=== PATIENT | male | born 1950 | race Two or more races ===

== ENCOUNTER 2016-06-14 09:55 | Outpatient (CLI) | payer MEDICARE, MEDICAID ==
[~2016-06-14 09:55] MED LIST: ATEZOLIZUMAB 1,200 MG in NORMAL SALINE 250 ML IV PRN; NORMAL SALINE 250 ML IV PRN
[2016-06-14 10:33] VITALS: BP 109/60
[2016-06-14] MEDS ORDERED: DIPHENHYDRAMINE HCL 50 MG/ML VIAL IV ONE (11:00)
[2016-06-14] MEDS ORDERED: ONDANSETRON HCL INJ/PF 4 MG/2 ML SDV IV ONE (11:00)
== END 2016-06-14 12:27 | disposition home or self-care (01) ==
LOC: II 09:55 → 5TH 10:00 → II 12:27
PROVIDERS: ATTEND Specialist
DX: Z51.11 Encounter for antineoplastic chemotherapy (principal); C67.9 Malignant neoplasm of bladder, unspecified
CPT/HCPCS: 96413; 96375; J2405; J7050; C9483; 96360; 96374

== ENCOUNTER 2016-07-05 11:04 | Outpatient (CLI) | payer MEDICARE, MEDICAID ==
[2016-07-05] MEDS ORDERED: NORMAL SALINE 250 ML IV PRN (11:24)
[2016-07-05] MEDS ORDERED: ONDANSETRON HCL INJ/PF 4 MG/2 ML SDV IV PRN (11:25)
[2016-07-05] MEDS ORDERED: ATEZOLIZUMAB 1,200 MG in NORMAL SALINE 250 ML IV PRN (11:28)
[2016-07-05] MEDS ORDERED: OXYCODONE HCL IR 5 MG TABLET PO ONE (12:40)
[2016-07-05 12:52] VITALS: BP 115/75
== END 2016-07-05 15:28 | disposition home or self-care (01) ==
LOC: II 11:04
PROVIDERS: ATTEND Specialist
PROC: 3E03305 Introduction of Other Antineoplastic into Peripheral Vein, Percutaneous Approach (ICD-10-PCS; principal; 2016-07-05)
PROC: 3E033GC Introduction of Other Therapeutic Substance into Peripheral Vein, Percutaneous Approach (ICD-10-PCS; 2016-07-05)
PROC: 3E033GC Introduction of Other Therapeutic Substance into Peripheral Vein, Percutaneous Approach (ICD-10-PCS; 2016-07-05)
DX: Z51.11 Encounter for antineoplastic chemotherapy (principal); D67 Hereditary factor IX deficiency
CPT/HCPCS: 96413; 96366; 96375; J2405; J7050; A9270; C9483; 96360; 96361; 96374

== ENCOUNTER → 2016-07-12 | Outpatient (CLI) | payer MEDICARE, MEDICAID | LOC: RAD 09:51 | PROVIDERS: ATTEND Specialist | DX: C67.9 Malignant neoplasm of bladder, unspecified (principal); M48.06 Spinal stenosis, lumbar region | CPT/HCPCS: 72158; A9577 ==

== ENCOUNTER 2016-07-26 10:24 | Observation (INO) | payer MEDICARE, MEDICAID ==
[2016-07-26] MEDS ORDERED: MORPHINE SULFATE 10 MG/ML INJ ONE ×3 (11:39→14:02)
[2016-07-26] MEDS ORDERED: ONDANSETRON HCL INJ/PF 4 MG/2 ML SDV IV ONE (11:50)
[2016-07-26] MEDS ORDERED: NORMAL SALINE 1000 ML 1,000 ML IV PRN (11:50)
[2016-07-26] MEDS ORDERED: METOCLOPRAMIDE HCL INJ/PF 10 MG/2 ML SDV IV ONE (11:57)
[2016-07-26] MEDS ORDERED: DIPHENHYDRAMINE HCL 50 MG/ML VIAL IV ONE (11:57)
[2016-07-26] MEDS ORDERED: ONDANSETRON HCL INJ/PF 4 MG/2 ML SDV ONE (12:02)
[2016-07-26] MEDS ORDERED: LIDOCAINE 2% JELLY 5 ML TUBE ONE (12:02)
[2016-07-26 12:25] LABS: HEMATOCRIT 30.5 % (37.9-51.0); HEMOGLOBIN 9.5 g/dL (13.5-17.0); MEAN CORPUSCULAR HEMOGLOBIN 28.8 pg (27.0-33.4); MEAN CORPUSCULAR HGB CONC 31.1 g/dL (32.0-36.0); MEAN CORPUSCULAR VOLUME 92 fl (80-97); RED CELL DISTRIBUTION WIDTH 15.6 % (11.5-14.0); WHITE BLOOD COUNT 21.6 10^3/uL (4.0-10.5)
[2016-07-26 12:29] LABS: PROTHROMBIN TIME 15.3 SEC (11.4-15.4)
[2016-07-26 12:42] LABS: ANISOCYTOSIS 1+; BASOPHILS % (MANUAL) 0 % (0-2); EOSINOPHILS % (MANUAL) 0 % (0-6); LYMPHOCYTES % (MANUAL) 8 % (13-45); TOTAL CELLS COUNTED 100; TOXIC GRANULATION SLIGHT
[2016-07-26 12:43] LABS: POLYCHROMASIA SLIGHT
[2016-07-26 12:44] LABS: ALANINE AMINOTRANSFERASE 32 U/L (21-72); ALBUMIN 3.5 g/dL (3.5-5.0); ALKALINE PHOSPHATASE 739 U/L (38-126); ANION GAP 19 (5-19); ASPARTATE AMINO TRANSFERASE 25 U/L (17-59); BILIRUBIN,TOTAL 0.9 mg/dL (0.2-1.3); BLOOD UREA NITROGEN 32 mg/dL (7-20); CARBON DIOXIDE 18 mmol/L (22-30); CHLORIDE 104 mmol/L (98-107); GLUCOSE 105 mg/dL (75-110); POTASSIUM 5.9 mmol/L (3.6-5.0); SODIUM 141.2 mmol/L (137-145); TOTAL PROTEIN 7.2 g/dL (6.3-8.2)
--- NOTE | 2016-07-26 14:46 | ER Document Report ---
ED General - General Chief Complaint: Constipation Stated Complaint: ABDOMINAL PAIN Time seen by provider: 12:00 Mode of Arrival: Medic Information source: Patient, Relative Notes: This is a 65-year-old man with metastatic bladder cancer who presents to the emergency room with significant generalized weakness, decreased by mouth intake , lower abdominal pain associated with severe constipation (last bowel movement 5 weeks ago). Patient does state that he is intermittently incontinent of stool. Patient does have a history of having a bladder resection with small bowel reconstruction. Patient denies any fever, chills, nausea vomiting. TRAVEL OUTSIDE OF THE [place] IN LAST 30 DAYS: No - HPI Onset: Last week Onset/Duration: Gradual Quality of pain: Dull Severity: Moderate Pain Level: 3 Associated symptoms: Nausea, Vomiting. denies: Chills, Fever Exacerbated by: Movement Relieved by: Remaining still Similar symptoms previously: Yes Recently seen / treated by doctor: Yes - Related Data Allergies/Adverse Reactions: Penicillins Allergy (Verified 04/22/15 12:50) rash Home Medications: Current Home Medications Lactulose [Constulose] 30 ml PO BID 07/26/16 [History] Megestrol Acetate [Megace] 20 ml PO BID 07/26/16 [History] Morphine Sulfate [Morphine Sulfate ER] 30 mg PO BID 07/26/16 [History] Past Medical History - General Information source: Patient, [facility] Records - Social History Smoking Status: Current Every Day Smoker Cigarette use (# per day): Yes - 3-4 cigarettes a day Chew tobacco use (# tins/day): No Smoking Education Provided: No Frequency of alcohol use: None Drug Abuse: Marijuana Lives with: Family Family History: Reviewed & Not Pertinent Patient has suicidal ideation: No Patient has homicidal ideation: No - Past Medical History Cardiac Medical History: Reports: Hx Heart Attack, Hx Hypertension Denies: Hx Coronary Artery Disease Pulmonary Medical History: Denies: Hx Asthma, Hx Bronchitis, Hx COPD, Hx Pneumonia Neurological Medical History: Denies: Hx Cerebrovascular Accident, Hx Seizures Renal/ Medical History: Denies: Hx Peritoneal Dialysis Malignancy Medical History: Reports Hx Renal (Kidney) Cancer Musculoskeltal Medical History: Reports Hx Arthritis - HANDS Past Surgical History: Reports: Hx Kidney (Renal Surgery) - 75% resection of the left kidney., Hx Urinary Tract Surgery - Laser procedure on a bladder cancer - Immunizations Immunizations up to date: Yes Hx Diphtheria, Pertussis, Tetanus Vaccination: Yes Hx Pneumococcal Vaccination: 03/04/11 Review of Systems - Review of Systems Constitutional: denies: Chills, Fever EENT: No symptoms reported Cardiovascular: No symptoms reported Respiratory: No symptoms reported Gastrointestinal: See HPI Genitourinary: See HPI Male Genitourinary: No symptoms reported Musculoskeletal: No symptoms reported Skin: No symptoms reported Hematologic/Lymphatic: No symptoms reported Neurological/Psychological: No symptoms reported Physical Exam - Vital signs Vitals: Temp 97.8 F 07/26/16 10:25 Notes: Physical exam: GENERAL: 65-year-old man, alert and oriented 3, cachectic, appears very weak and ill. HEAD: Atraumatic, normocephalic. EYES: Pupils equal round and reactive to light, extraocular movements intact, sclera anicteric, conjunctiva are normal. ENT: TMs normal, nares patent, oropharynx clear without exudates. Moist mucous membranes. NECK: Normal range of motion, supple without lymphadenopathy or JVD. LUNGS: Breath sounds clear to auscultation bilaterally and equal. No wheezes rales or rhonchi. HEART: Regular rate and rhythm without murmurs, rubs or gallops. ABDOMEN: Soft, normoactive bowel sounds. Suprapubic tenderness. No guarding, no rebound. No masses appreciated. Back: No thoracic or lumbar tenderness. RECTAL: Patient does have marked constipation with a very large amount of stool in the sigmoid. He was disimpacted a very large amount of stool. No obvious masses were palpable. His perirectal area his understandably tender. There is no obvious fluctuant masses at this time. He does have rectal tone. EXTREMITIES: He is moving his lower extremities. Normal range of motion, no pitting or edema. No clubbing or cyanosis. NEUROLOGICAL: Sensory to the abdomen and lower extremities is good (there are no sensory levels). Cranial nerves II through XII grossly intact. PSYCH: Normal mood, normal affect. SKIN: Warm, Dry, normal turgor, no rashes or lesions noted. Course - Re-evaluation Re-evalutation: 07/26/16 19:50 Note: Patient did tolerate the disimpaction well. It took quite a bit of time as there was a large amount of stool. There is still a fair amount of stool left, but it is soft. I did and the procedure after 30 minutes at the patient request. The stool that his left is quite soft. Patient does have rectal tone. He does have sensation to the saddle area. I do not detect any acute cord syndrome at this time. I did review the MRI with Dr. Lopez and it shows diffuse soft tissue metastases but no spinal metastases. I discussed the case with Dr. Campuzano as well and she will see the patient in consult. Dust the leukocytosis which is sometimes an effect of the immune modulator. He has had elevated white counts in the past. I do not see any evidence of sepsis at this time. The patient's primary care physician is Dr. Valencia and I discussed the case with Dr. Valencia in his willing to admit the patient for further IV fluids. The patient has had retching and vomiting and I treated him with IV Zofran, IV Reglan and Benadryl along with IV fluids. - Vital Signs Vital signs: Temp Pulse Resp BP Pulse Ox 98.4 F 78 16 106/66 99 07/26/16 18:39 07/26/16 18:39 07/26/16 18:39 07/26/16 18:39 07/26/16 18:39 - Laboratory Result Diagrams: 07/26/16 10:38 07/26/16 10:38 Laboratory results interpreted by me: 07/26/16 07/26/16 10:38 10:38 WBC 21.6 H RBC 3.30 L Hgb 9.5 L Hct 30.5 L MCHC 31.1 L RDW 15.6 H Plt Count 667 H Seg Neuts % (Manual) 87 H Lymphocytes % (Manual) 8 L Abs Neuts (Manual) 18.8 H Potassium 5.9 H Carbon Dioxide 18 L BUN 32 H Creatinine 1.70 H Est GFR ( Amer) 49 L Est GFR (Non-Af Amer) 41 L Alkaline Phosphatase 739 H - Diagnostic Test Radiology reviewed: Image reviewed, Reports reviewed - KUB after disimpaction shows still a significant amount of stool in the colon. Procedures - Additional Procedures fecal disimpaction Time performed: 14:00 Additional Procedures: Other - A large amount of stool was liberated from the sigmoid. The procedure took approximately 30 minutes. I did apply lidocaine jelly to the rectum after the procedure. No obvious masses were palpable. Critical Care Note - Critical Care Note Total time excluding time spent on procedures (mins): 60 Discharge - Discharge Clinical Impression: vomiting with nausea, orthostasis, metastatic cancer, constipation, hyperkalemia Condition: Stable Disposition: ADMITTED OBSERVATION Admitting Provider: Erik Unit Admitted: Medical Floor
[2016-07-26] MEDS ORDERED: ONDANSETRON HCL INJ/PF 4 MG/2 ML SDV IV PRN (16:44)
[2016-07-26] MEDS ORDERED: PROMETHAZINE HCL 25 MG TABLET PO PRN (16:52)
[2016-07-26 17:26] LABS: APPEARANCE,URINE SLIGHTLY-CLOUDY; BILIRUBIN,URINE NEGATIVE (NEGATIVE); GLUCOSE, URINE NEGATIVE (NEGATIVE); KETONES,URINE NEGATIVE (NEGATIVE); LEUKOCYTE ESTERASE,URINE MODERATE (NEGATIVE); NITRITE,URINE NEGATIVE (NEGATIVE); PROTEIN,URINE 30 mg/dL (NEGATIVE)
--- NOTE | 2016-07-26 17:43 | PDOC H&P ---
History of Present Illness Admission Date/PCP: 07/26/16 16:10 CLARISSA MARIA MD Patient complains of: constipation History of Present Illness: ÁLVARO SANDS is a 65 year old male with cancer bladder dome metastatic to lung liver and paraspinal tissue. 7feb mri L hydronephrosis. OIC on morphine 15bid. ER disempacted. Vomiting, dehydration. Past Medical History Cardiac Medical History: Reports: Myocardial Infarction, Hypertension Pulmonary Medical History: Reports: Chronic Obstructive Pulmonary Disease (COPD) Neurological Medical History: Reports: None Malignancy Medical History: Reports: Other - 2016 bladder turb & chemo GI Medical History: Reports: Gastroesophageal Reflux Disease Musculoskeltal Medical History: Reports: Arthritis - HANDS lbp Psychiatric Medical History: Reports: None Traumatic Medical History: Reports: None Hematology: Reports: Anemia - chronic disease Infectious Medical History: Reports: None Past Surgical History Past Surgical History: Reports: Other - turb. November jennifer bladder Social History Information Source: Dr. Jeffers Lives with: Family Smoking Status: Former Smoker Last Time Smoked: 2015 Frequency of Alcohol Use: None Hx Recreational Drug Use: Yes Drugs: Marijuana Hx Prescription Drug Abuse: No Family History Family History: Reviewed & Not Pertinent, CAD, CVA, DM, Hypertension, Malignancy Parental Family History Reviewed: Yes Children Family History Reviewed: Yes Sibling(s) Family History Reviewed.: Yes Medication/Allergy Home Medications: Ondansetron HCl [Zofran 8 mg Tablet] 8 mg PO TID 10/12/15 Promethazine HCl [Phenergan 25 mg Tablet] 25 mg PO Q4HP PRN 10/12/15 Lactulose [Constulose] 30 ml PO BID 07/26/16 Megestrol Acetate [Megace] 20 ml PO BID 07/26/16 Morphine Sulfate [Morphine Sulfate ER] 30 mg PO BID 07/26/16 Allergies/Adverse Reactions: Penicillins Allergy (Verified 04/22/15 12:50) rash Review of Systems Constitutional: PRESENT: fever(s), weakness, weight loss - 30# in 2w Cardiovascular: PRESENT: dyspnea on exertion. ABSENT: chest pain, orthropnea Respiratory: ABSENT: cough Gastrointestinal: PRESENT: bloating, constipation, vomiting. ABSENT: abdominal pain, diarrhea, heartburn, hematemesis, hematochezia, melena Genitourinary: PRESENT: difficulty urinating. ABSENT: dysuria, hematuria Musculoskeletal: PRESENT: back pain - radiating to ankles Integumentary: PRESENT: lesions - lump R sacrum Physical Exam Vital Signs: Temp Pulse Resp BP Pulse Ox 97.8 F 16 112/74 96 07/26/16 10:25 07/26/16 13:10 07/26/16 12:30 07/26/16 13:10 General appearance: PRESENT: no acute distress Mouth exam: PRESENT: dry mucosa Neck exam: ABSENT: lymphadenopathy, tenderness, thyromegaly, tracheal deviation Respiratory exam: PRESENT: other - R rub Cardiovascular exam: ABSENT: diastolic murmur, irregular rhythm, systolic murmur GI/Abdominal exam: ABSENT: mass, organolmegaly, tenderness Extremities exam: ABSENT: pedal edema Neurological exam: PRESENT: oriented to situation, other - plantar & dorsiflexion 5of5 Psychiatric exam: PRESENT: appropriate affect Skin exam: PRESENT: other - lump R sacrum Results Laboratory Results: Abnormal - 24 hr 07/26/16 07/26/16 07/26/16 10:38 10:38 16:51 WBC 21.6 H RBC 3.30 L Hgb 9.5 L Hct 30.5 L MCHC 31.1 L RDW 15.6 H Plt Count 667 H Seg Neuts % (Manual) 87 H Lymphocytes % (Manual) 8 L Abs Neuts (Manual) 18.8 H Potassium 5.9 H Carbon Dioxide 18 L BUN 32 H Creatinine 1.70 H Est GFR ( Amer) 49 L Est GFR (Non-Af Amer) 41 L Alkaline Phosphatase 739 H Urine Protein 30 H Urine Blood SMALL H Urine Urobilinogen 4.0 H Ur Leukocyte Esterase MODERATE H Impressions: KUB X-Ray 07/26/16 12:33 IMPRESSION: Moderate to large amount of stool in the left colon Surgical clips in the pelvis post creation of a neobladder Soft tissue masses from metastatic disease in the paraspinal region seen on MRI lumbar spine 07/12/2016 are not apparent by plain film Assessment & Plan - Diagnosis (1) Bladder cancer metastasized to lung Is this a current diagnosis for this admission?: YesPlan: consult Dr Campuzano (2) Impaction of colon Is this a current diagnosis for this admission?: YesPlan: amitiza enemas
[2016-07-26] MEDS ORDERED: LACTULOSE PO SCH (18:00)
[2016-07-26] MEDS ORDERED: ENOXAPARIN SODIUM INJ 30 MG/0.3 ML DISP.SYRIN SUBCUT ONE (18:00)
[2016-07-26] MEDS: NORMAL SALINE 1000 ML 1,000 ML IV PRN (20:00)
[2016-07-26] MEDS: MORPHINE SULFATE SR 15 MG TABLET PO SCH (20:01)
[2016-07-26] MEDS: ONDANSETRON HCL 8 MG TABLET PO SCH (20:02)
[2016-07-26] MEDS: LACTULOSE SYRUP 20 GM/30 ML UDCUP PO SCH (20:02)
[2016-07-26] MEDS: LUBIPROSTONE 24 MCG CAPSULE PO SCH (20:02)
[2016-07-26] MEDS: OXYCODONE-ACETAMINOPHEN 5-325 MG TABLET PO PRN (23:37)
[2016-07-27] MEDS: NORMAL SALINE 1000 ML 1,000 ML IV PRN ×3 (02:40→19:43)
[2016-07-27 06:11] LABS: ANION GAP 11 (5-19); BLOOD UREA NITROGEN 30 mg/dL (7-20); CALCIUM 8.8 mg/dL (8.4-10.2); CARBON DIOXIDE 19 mmol/L (22-30); CHLORIDE 110 mmol/L (98-107); CREATININE RESULT 1.49 mg/dL (0.52-1.25); GLUCOSE 85 mg/dL (75-110); POTASSIUM 5.4 mmol/L (3.6-5.0); SODIUM 139.5 mmol/L (137-145)
--- NOTE | 2016-07-27 07:43 | PDOC PROGRESS REPORT ---
Subjective Progress Note for:: 07/27/16 Subjective:: better p enemas returned good results Physical Exam Vital Signs: Temp Pulse Resp BP Pulse Ox 98.3 F 81 19 100/59 L 98 07/26/16 23:32 07/26/16 23:32 07/26/16 23:32 07/26/16 23:32 07/26/16 23:32 Intake & Output 07/25/16 07/26/16 07/27/16 07:59 07:59 07:59 Intake Total 1850 Balance 1850 Weight 123 lb 10.869 oz General appearance: PRESENT: no acute distress Respiratory exam: PRESENT: clear to auscultation chase GI/Abdominal exam: PRESENT: tenderness - mild epigastric. ABSENT: guarding, mass, organolmegaly Extremities exam: ABSENT: pedal edema Results Laboratory Results: 07/27/16 04:45 07/26/16 07/27/16 16:51 04:45 Sodium 139.5 Potassium 5.4 H Chloride 110 H Carbon Dioxide 19 L Anion Gap 11 BUN 30 H Creatinine 1.49 H Est GFR ( Amer) 57 L Est GFR (Non-Af Amer) 47 L Glucose 85 Calcium 8.8 Urine Color YELLOW Urine Appearance SLIGHTLY-CLOUDY Urine pH 6.0 Ur Specific [place] 1.010 Urine Protein 30 H Urine Glucose (UA) NEGATIVE Urine Ketones NEGATIVE Urine Blood SMALL H Urine Nitrite NEGATIVE Ur Leukocyte Esterase MODERATE H Urine WBC (Auto) 12 Urine RBC (Auto) 1 Impressions: KUB X-Ray 07/26/16 12:33 IMPRESSION: Moderate to large amount of stool in the left colon Surgical clips in the pelvis post creation of a neobladder Soft tissue masses from metastatic disease in the paraspinal region seen on MRI lumbar spine 07/12/2016 are not apparent by plain film Assessment & Plan - Diagnosis (1) Bladder cancer metastasized to lung Is this a current diagnosis for this admission?: YesPlan: consulted Dr Campuzano (2) Impaction of colon Is this a current diagnosis for this admission?: YesPlan: conitnue enemas & amitiza (3) Pyuria Is this a current diagnosis for this admission?: YesPlan: 12wbc. Culture (4) Hydronephrosis due to ureteral stricture Is this a current diagnosis for this admission?: YesPlan: L on mri
[2016-07-27] MEDS ORDERED: ENOXAPARIN SODIUM INJ 30 MG/0.3 ML DISP.SYRIN SUBCUT SCH (08:00)
[2016-07-27] MEDS: ENOXAPARIN SODIUM INJ 30 MG/0.3 ML DISP.SYRIN SUBCUT SCH (08:17)
[2016-07-27] MEDS: ONDANSETRON HCL 8 MG TABLET PO SCH ×3 (11:05→18:30)
[2016-07-27] MEDS: MORPHINE SULFATE SR 15 MG TABLET PO SCH ×2 (11:06→18:29)
[2016-07-27] MEDS: LACTULOSE SYRUP 20 GM/30 ML UDCUP PO SCH ×2 (11:07→18:29)
[2016-07-27] MEDS: LUBIPROSTONE 24 MCG CAPSULE PO SCH ×2 (11:08→18:29)
[2016-07-27] MEDS: OXYCODONE-ACETAMINOPHEN 5-325 MG TABLET PO PRN (14:03)
--- NOTE | 2016-07-27 17:32 | PDOC CONSULTATION ---
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 Initially diagnosed with locally advanced, muscle invasive bladder cancer treated with neoadjuvant GC x 6 then bladder resection at [facility] with Dr. Mejia with neobladder reconstruction. Recently with Progression of disease and just started immunotherapy with Tecentriq. Due to back pain, he had an MRI which revealed several paraspinal mets but no cord compression and was placed on long acting analgesics. He was also noted to have signs of MAURICIO and left hydronephrosis. Unfortunately, he had worsening constipation and presented to the ED with a large amount of stool on KUB. ER disempacted him due to and due to Vomiting, and dehydration he was admitted. He is feeling better today and denies symptoms of MAURICIO. Past Medical History Cardiac Medical History: Reports: Myocardial Infarction, Hypertension Denies: Coronary Artery Disease Pulmonary Medical History: Denies: Asthma, Bronchitis, Chronic Obstructive Pulmonary Disease (COPD), Pneumonia Neurological Medical History: Reports: None Denies: Seizures Renal/ Medical History: Reports: Chronic Kidney Disease Malignancy Medical History: Reports: Renal (Kidney) Cancer, Other - 2016 bladder turb & chemo GI Medical History: Reports: Gastroesophageal Reflux Disease Musculoskeltal Medical History: Reports: Arthritis - HANDS Psychiatric Medical History: Reports: None Traumatic Medical History: Reports: None Hematology: Reports: Anemia - chronic disease, Other - Prior UE DVT Infectious Medical History: Reports: None Past Surgical History Past Surgical History: Reports: Other - . jennifer bladder prior partial nephrectomy Social History Lives with: Family Smoking Status: Current Every Day Smoker Cigarettes Packs Per Day: 1 Number of Years Smokin Last Time Smoked: 07/23/16 Frequency of Alcohol Use: Occasional Hx Recreational Drug Use: Yes Drugs: Marijuana Hx Prescription Drug Abuse: No - Advance Directive Resuscitation Status: Do Not Resuscitate Family History Family History: Reviewed & Not Pertinent Parental Family History Reviewed: Yes Children Family History Reviewed: Yes Sibling(s) Family History Reviewed.: Yes Medication/Allergy Home Medications: Ondansetron HCl [Zofran 8 mg Tablet] 8 mg PO TID 10/12/15 Promethazine HCl [Phenergan 25 mg Tablet] 25 mg PO Q4HP PRN 10/12/15 Lactulose [Constulose] 30 ml PO BID 07/26/16 Megestrol Acetate [Megace] 20 ml PO BID 07/26/16 Morphine Sulfate [Morphine Sulfate ER] 30 mg PO BID 07/26/16 Allergies/Adverse Reactions: Penicillins Allergy (Verified 04/22/15 12:50) rash Review of Systems Constitutional: PRESENT: weight loss Gastrointestinal: PRESENT: abdominal pain, nausea, vomiting Genitourinary: PRESENT: as per HPI Hematologic/Lymphatic: PRESENT: as per HPI Physical Exam Vital Signs: Temp Pulse Resp BP Pulse Ox 98.0 F 78 16 109/61 98 07/27/16 12:30 07/27/16 12:30 07/27/16 12:30 07/27/16 12:30 07/27/16 12:30 Intake & Output 07/26/16 07/27/16 07/28/16 06:59 06:59 06:59 Intake Total 1850 2558 Balance 1850 2558 Weight 56.1 kg General appearance: PRESENT: no acute distress, other - Pale Head exam: PRESENT: atraumatic, normocephalic Eye exam: PRESENT: conjunctiva pale Ear exam: PRESENT: normal external ear exam Mouth exam: PRESENT: dry mucosa Respiratory exam: PRESENT: clear to auscultation chase Cardiovascular exam: PRESENT: tachycardia GI/Abdominal exam: PRESENT: hypoactive bowel sounds, soft Neurological exam: PRESENT: alert, oriented to person, oriented to place, oriented to time, oriented to situation, CN II-XII grossly intact Results Laboratory Results: 07/27/16 04:45 07/26/16 07/27/16 16:51 04:45 Sodium 139.5 Potassium 5.4 H Chloride 110 H Carbon Dioxide 19 L Anion Gap 11 BUN 30 H Creatinine 1.49 H Est GFR ( Amer) 57 L Est GFR (Non-Af Amer) 47 L Glucose 85 Calcium 8.8 Urine Color YELLOW Urine Appearance SLIGHTLY-CLOUDY Urine pH 6.0 Ur Specific [place] 1.010 Urine Protein 30 H Urine Glucose (UA) NEGATIVE Urine Ketones NEGATIVE Urine Blood SMALL H Urine Nitrite NEGATIVE Ur Leukocyte Esterase MODERATE H Urine WBC (Auto) 12 Urine RBC (Auto) 1 Impressions: KUB X-Ray 07/26/16 12:33 IMPRESSION: Moderate to large amount of stool in the left colon Surgical clips in the pelvis post creation of a neobladder Soft tissue masses from metastatic disease in the paraspinal region seen on MRI lumbar spine 07/12/2016 are not apparent by plain film Assessment & Plan - Diagnosis (1) Bladder cancer metastasized to lung Is this a current diagnosis for this admission?: YesPlan: Hold his current therapy until symptoms have resolved. Consult pain specialist for control (2) Hydronephrosis due to ureteral stricture Is this a current diagnosis for this admission?: YesPlan: Will start flomax and refer back up to Dr. Mejia (3) Impaction of colon Is this a current diagnosis for this admission?: YesPlan: Better today but continue bowel regimen (4) Pyuria Is this a current diagnosis for this admission?: YesPlan: Send urine for culture - Time Time Spent: 50 to 70 Minutes Critical Time spent with patient: 35 or more minutes Medications reviewed and adjusted accordingly: Yes Within: within 36 hours - Inpatient Certification Medical Necessity: Need For IV Fluids
[2016-07-27] MEDS ORDERED: ONDANSETRON HCL INJ/PF 4 MG/2 ML SDV ONE (18:22)
[2016-07-27] MEDS ORDERED: PROMETHAZINE HCL 25 MG TABLET PO PRN (19:05)
[2016-07-27] MEDS ORDERED: OXYCODONE-ACETAMINOPHEN 5-325 MG TABLET PO PRN (19:07)
--- NOTE | 2016-07-27 21:08 | CONSULTATION REPORT E ---
Consultation Report NAME: ÁLVARO SANDS : 1950 AGE: 65Y DATE: 07/27/2016 405 A TO: TONO STEWART M.D. FROM: CLARISSA MARIA M.D. Requesting Physician REFERRING PHYSICIAN: LUCY CHAPMAN M.D. CHIEF COMPLAINT: Constipation. 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 The patient has had progression of disease and has recently started immunotherapy per Dr. Chapman. Per the patient, he was recently admitted because he had worsening constipation and bowel obstruction. He presented to the emergency department on 07/26/2016 and required manual disimpaction and multiple enemas. Today the patient notes that his pain is much improved. He was relating his pain to worsening constipation that felt like it was causing substantial abdominal distension. He states today that he is doing better though he has had some nausea and vomiting that has continued. When asked is what is most painful for the patient, he states, "not knowing how much time I have left with my family." He does not complain much in the way of physical pain today. He notes that he has been taking MS-Contin for the past month which has been helpful with back pain. However, he notes that since starting the MS-Contin, he has had worsening issues with constipation. He notes that he has previously taken oxycodone, which has been helpful though he notes that if he takes more than 5 mg of oxycodone at a time, it causes a substantial mental disturbance to hallucination. He also notes this makes him very nauseated. He is unable to tolerate higher doses of oxycodone. He denies really any other trials of pain medications though. He does describe at length that he has had a history of illicit substances use though he has been away from this for greater than 20 years now. He states to me that, "I was a junkie." At current what is most bothersome to him is dealing with his current diagnosis of cancer. PAST MEDICAL HISTORY: As per HPI, chronic kidney disease, kidney cancer status post nephrectomy, bladder dome status post neobladder and chemo, gastroesophageal reflux disease, arthritis, low back pain, anemia of chronic disease, history of prior upper extremity DVT. PAST SURGICAL HISTORY: As above, neobladder and partial prior nephrectomy November 2015. SOCIAL HISTORY: He lives with his , states that he has 56 grandchildren. He endorses that he has previously used illicit substances. He is a current every-day smoker and smokes 1 pack per day. He uses alcohol occasionally. Notably, he is a DNR. FAMILY HISTORY: Noncontributory. HOME MEDICATIONS: 1. Zofran 8 mg p.o. t.i.d. 2. Phenergan 25 mg p.o. q.4 h. p.r.n. 3. Lactulose 30 mg p.o. b.i.d. 4. Megace 20 mg p.o. b.i.d. 5. Morphine sulfate extended release 30 mg p.o. b.i.d. ALLERGIES: PENICILLIN. REVIEW OF SYSTEMS: Patient endorses some nausea and vomiting and actually vomits while in the room, weight loss and constipation. PHYSICAL EXAMINATION: VITAL SIGNS: Temperature 98, heart rate 78, blood pressure 109/61, respiratory rate 16, oxygen saturation 98% on room air. Pain score 0/5. GENERAL: The patient is a very thin male sitting in bed in no acute distress. He is emphatic in his speaking. He is alert and oriented x3. HEENT: Head is normocephalic, atraumatic. Poor dentition noted. NECK: Thin. RESPIRATORY: Even unlabored work of breathing. CARDIOVASCULAR: Regular rate and rhythm. ABDOMEN: Soft today, nontender. MUSCULOSKELETAL: Moves all extremities. NEUROLOGIC: No focal deficits noted. PERTINENT LABORATORY TESTS: Laboratory: White blood count is elevated at 21.6, hemoglobin and hematocrit are 9.5 and 30.5, both low. Platelet count 667. Potassium is 5.4 and elevated, BUN 30, creatinine 1.49 and elevated. Previous lumbar spine MRI dated 07/12/2016 demonstrated numerous paraspinal mets too numerous to count. There is also degenerative disk disease at L2-L3 from a broad diffuse disk bulge, facet hypertrophy as well, L3-4 with mild central stenosis, L4-5 with high-grade central stenosis due to broad based disk bulge and L5-S1 with broad posterior disk bulge. ASSESSMENT: 1. Opioid induced constipation. 2. Chronic pain due to cancer. PLAN: 1. The patient is a 65-year-old male currently suffering with opioid induced constipation exacerbating cancer related pain. Notably the patient is actually fairly well controlled from a pain management standpoint though constipation has been an ongoing issue. He is currently on a rigorous bowel regimen in-house for disimpaction. With regard to this, I agree with current plan. I have discussed with the patient at length that as an outpatient, he should consider being on a rigorous bowel regimen as an every-day consideration. I would recommend consideration for medication such as Movantik or Relistor given the substantial opiate induced aspect of his constipation once confirmation can be made there is no bowel obstruction. This will need to be taken every day to allow for continued regular bowel movements. Otherwise, hydration and proper diet was discussed. 2. With regard to nausea and vomiting, there is currently no in-house IV Phenergan. I have provided an order for p.o. Phenergan that may be crushed and taken. Otherwise, Zofran may be continued, alternating with Phenergan for nausea. 3. With regard to pain, while morphine has been working, given the side effects that are associated with it, I have recommended a potential change in long-acting medication. I would recommend a trial of fentanyl patch. While this is opioid and certainly can cause constipation, sometimes I find that there is some improvement in this aspect given that there is some bypass of the gut with administration of this medication. I have recommended a start dose of 25 mcg/hr every 72 hours given patient's current morphine dosing. Additionally will continue oxycodone at 5/325 mg, as this has been tolerable for the patient and does help with pain. 4. With regard to back pain, if this is something that should recur in a substantive fashion, procedural techniques could be considered for degenerative disk disease if pain returns and fits this sort of pattern. 5. With regard to the pain due to paraspinal soft tissue metastases, I do not believe there is interventional technique that would provide a great relief with regard to this. 6. I discussed with the patient that we will give the fentanyl patch a try and if he is not happy with pain relief or has worsening side effects of nausea or constipation, then we will switch back to morphine and continue with that, given its efficacy with his pain. I will continue to follow along with this patient. Thank you very much for this interesting consultation. DICTATING PHYSICIAN: TONO STEWART M.D. [id number] PHY#: [id number] ID: [id number] JOB#: [id number] ACCT: [id number] cc:TONO STEWART M.D. > MTDD
[2016-07-27] MEDS ORDERED: FENTANYL 25 MCG/HR PATCH.TD72 TD SCH (22:00)
[2016-07-27] MEDS ORDERED: TAMSULOSIN HCL 0.4 MG CAP.SR.24H PO SCH (22:00)
[2016-07-28] MEDS: NORMAL SALINE 1000 ML 1,000 ML IV PRN (01:31)
[2016-07-28 06:39] LABS: ANION GAP 10 (5-19); BLOOD UREA NITROGEN 22 mg/dL (7-20); CALCIUM 8.8 mg/dL (8.4-10.2); CARBON DIOXIDE 19 mmol/L (22-30); CHLORIDE 112 mmol/L (98-107); CREATININE RESULT 1.28 mg/dL (0.52-1.25); GLUCOSE 84 mg/dL (75-110); POTASSIUM 4.9 mmol/L (3.6-5.0); SODIUM 140.7 mmol/L (137-145)
--- NOTE | 2016-07-28 08:02 | PDOC DISCHARGE SUMMARY ---
General - Admit/Disc Date/PCP Admission Date/Primary Care Provider: 07/26/16 16:44 CLARISSA MARIA MD Discharge Date: 07/28/16 - Discharge Diagnosis (1) Bladder cancer metastasized to lung Is this a current diagnosis for this admission?: YesSummary: Drs Justen & Fannie saw in consultation and recommended switching MScontin to fentanyl patch which has not nauseated him. (2) Impaction of colon Is this a current diagnosis for this admission?: YesSummary: feels much better after several enemas & amitiza. Starting movantic 25mg half daily for cc44. (3) Pyuria Is this a current diagnosis for this admission?: YesSummary: culture pending (4) Hydronephrosis due to ureteral stricture Is this a current diagnosis for this admission?: YesSummary: has appointment with Dr Pedro. - Additional Information Resuscitation Status: Do Not Resuscitate Discharge Diet: As Tolerated Discharge Activity: Activity As Tolerated Home Medications: Ondansetron HCl [Zofran 8 mg Tablet] 8 mg PO TID 10/12/15 Promethazine HCl [Phenergan 25 mg Tablet] 25 mg PO Q4HP PRN 10/12/15 Lactulose [Constulose] 30 ml PO BID 07/26/16 Megestrol Acetate [Megace] 20 ml PO BID 07/26/16 Fentanyl [Duragesic 25 mcg/hr Transdermal Patch] 1 each TD Q3D@2200 #5 patch.td72 07/28/16 Naloxegol Oxalate [Movantik 25 mg Tablet] 25 mg PO DAILY #30 tablet 07/28/16 Oxycodone HCl/Acetaminophen [Percocet 5-325 mg Tablet] 1 tab PO Q3HP PRN #0 tablet 07/28/16 Tamsulosin HCl [Flomax 0.4 mg Cap.sr] 0.4 mg PO QHS #30 cap.sr.24h 07/28/16 History of Present Illness Patient complains of: cant poop History of Present Illness: ÁLVARO SANDS is a 65 year old male with cancer bladder dome metastatic to lung liver and paraspinal tissue. 7feb mri L hydronephrosis. OIC on morphine 15bid. ER disempacted. Vomiting, dehydration. Hospital Course Hospital Course: see above Physical Exam Vital Signs: Temp Pulse Resp BP Pulse Ox 98.1 F 79 17 116/63 99 07/28/16 00:00 07/28/16 00:00 07/28/16 00:00 07/28/16 00:00 07/28/16 00:00 Intake & Output 07/26/16 07/27/16 07/28/16 07:59 07:59 07:59 Intake Total 3546 3462 Output Total 1000 Balance 3546 2462 Weight 123 lb 10.869 oz 123 lb 7.342 oz General appearance: PRESENT: no acute distress Respiratory exam: PRESENT: rhonchi GI/Abdominal exam: ABSENT: mass, organolmegaly, tenderness Extremities exam: ABSENT: pedal edema Results Laboratory Results: 07/28/16 05:29 07/28/16 05:29 07/28/16 07/28/16 05:29 05:29 WBC Cancelled RBC Cancelled Hgb Cancelled Hct Cancelled MCV Cancelled MCH Cancelled MCHC Cancelled RDW Cancelled Plt Count Cancelled Seg Neutrophils % Cancelled Lymphocytes % Cancelled Monocytes % Cancelled Eosinophils % Cancelled Basophils % Cancelled Absolute Neutrophils Cancelled Absolute Lymphocytes Cancelled Absolute Monocytes Cancelled Absolute Eosinophils Cancelled Absolute Basophils Cancelled Sodium 140.7 Potassium 4.9 Chloride 112 H Carbon Dioxide 19 L Anion Gap 10 BUN 22 H Creatinine 1.28 H Est GFR ( Amer) > 60 Est GFR (Non-Af Amer) 56 L Glucose 84 Calcium 8.8 Impressions: KUB X-Ray 07/26/16 12:33 IMPRESSION: Moderate to large amount of stool in the left colon Surgical clips in the pelvis post creation of a neobladder Soft tissue masses from metastatic disease in the paraspinal region seen on MRI lumbar spine 07/12/2016 are not apparent by plain film Qualifiers PATEINT BEING DISCHARGED WITH ANY OF THE FOLLOWING DIAGNOSIS?: No Plan Discharge Plan: home. 6d ov
[2016-07-28 08:07] LABS: ABSOLUTE BASOPHILS # (AUTO) 0.1 10^3/uL (0.0-0.2); ABSOLUTE EOSINOPHILS # (AUTO) 0.3 10^3/uL (0.0-0.6); ABSOLUTE LYMPHOCYTES (AUTO) 1.7 10^3/uL (0.5-4.7); ABSOLUTE MONOCYTES (AUTO) 0.7 10^3/uL (0.1-1.4); ABSOLUTE NEUT (AUTO) 7.3 10^3/uL (1.7-8.2); BASOPHILS % (AUTO) 0.7 % (0-2); EOSINOPHILS % (AUTO) 2.5 % (0-6); HEMATOCRIT 22.7 % (37.9-51.0); HGB HCT DIFFERENCE -0.5; LYMPHOCYTES % (AUTO) 16.7 % (13-45); MEAN CORPUSCULAR HEMOGLOBIN 29.6 pg (27.0-33.4); MEAN CORPUSCULAR HGB CONC 32.8 g/dL (32.0-36.0); MEAN CORPUSCULAR VOLUME 90 fl (80-97); MONOCYTES % (AUTO) 7.4 % (3-13); RED BLOOD COUNT 2.52 10^6/uL (4.35-5.55); RED CELL DISTRIBUTION WIDTH 15.5 % (11.5-14.0); SEGMENTED NEUTROPHILS % (AUTO) 72.7 % (42-78)
--- NOTE | 2016-07-28 08:09 | PDOC PROGRESS REPORT ---
Subjective Progress Note for:: 07/28/16 Subjective:: Feeling much better, had BMs, feels ready to go home, on fentanyl patch now Physical Exam Vital Signs: Temp Pulse Resp BP Pulse Ox 98.1 F 79 17 116/63 99 07/28/16 00:00 07/28/16 00:00 07/28/16 00:00 07/28/16 00:00 07/28/16 00:00 Intake & Output 07/27/16 07/28/16 07/29/16 06:59 06:59 06:59 Intake Total 1850 5158 Output Total 1000 Balance 1850 4158 Weight 56.1 kg 56 kg General appearance: PRESENT: no acute distress, well-developed, well-nourished Head exam: PRESENT: atraumatic, normocephalic Eye exam: PRESENT: conjunctiva pink, EOMI, PERRLA. ABSENT: scleral icterus Ear exam: PRESENT: normal external ear exam Mouth exam: PRESENT: moist, tongue midline Neck exam: ABSENT: carotid bruit, JVD, lymphadenopathy, thyromegaly Respiratory exam: PRESENT: clear to auscultation chase. ABSENT: rales, rhonchi, wheezes Cardiovascular exam: PRESENT: RRR. ABSENT: diastolic murmur, rubs, systolic murmur Pulses: PRESENT: normal dorsalis pedis pul Vascular exam: PRESENT: normal capillary refill GI/Abdominal exam: PRESENT: normal bowel sounds, soft. ABSENT: distended, guarding, mass, organolmegaly, rebound, tenderness Rectal exam: PRESENT: deferred Extremities exam: PRESENT: full ROM. ABSENT: calf tenderness, clubbing, pedal edema Neurological exam: PRESENT: alert, awake, oriented to person, oriented to place , oriented to time, oriented to situation, CN II-XII grossly intact. ABSENT: motor sensory deficit Psychiatric exam: PRESENT: appropriate affect, normal mood. ABSENT: homicidal ideation, suicidal ideation Skin exam: PRESENT: dry, intact, warm. ABSENT: cyanosis, rash Results Laboratory Results: 07/28/16 05:29 07/28/16 07/28/16 05:29 05:29 WBC Cancelled RBC Cancelled Hgb Cancelled Hct Cancelled MCV Cancelled MCH Cancelled MCHC Cancelled RDW Cancelled Plt Count Cancelled Seg Neutrophils % Cancelled Lymphocytes % Cancelled Monocytes % Cancelled Eosinophils % Cancelled Basophils % Cancelled Absolute Neutrophils Cancelled Absolute Lymphocytes Cancelled Absolute Monocytes Cancelled Absolute Eosinophils Cancelled Absolute Basophils Cancelled Sodium 140.7 Potassium 4.9 Chloride 112 H Carbon Dioxide 19 L Anion Gap 10 BUN 22 H Creatinine 1.28 H Est GFR ( Amer) > 60 Est GFR (Non-Af Amer) 56 L Glucose 84 Calcium 8.8 Impressions: KUB X-Ray 07/26/16 12:33 IMPRESSION: Moderate to large amount of stool in the left colon Surgical clips in the pelvis post creation of a neobladder Soft tissue masses from metastatic disease in the paraspinal region seen on MRI lumbar spine 07/12/2016 are not apparent by plain film Assessment & Plan - Diagnosis (1) Bladder cancer metastasized to lung Is this a current diagnosis for this admission?: YesPlan: Further rx w/ immunotx planned as outpt (2) Pain, neoplasm-related Is this a current diagnosis for this admission?: YesPlan: Improved, fentanyl now on board, apprec pain management help - Time Time Spent with patient: 25-34 minutes Critical Time spent with patient: 25-34 minutes Anticipated discharge: Home
[2016-07-28 08:39] LABS: HEMOGLOBIN 7.4 g/dL (13.5-17.0)
[2016-07-28] MEDS: LUBIPROSTONE 24 MCG CAPSULE PO SCH (11:34)
[2016-07-28] MEDS: ONDANSETRON HCL 8 MG TABLET PO SCH ×2 (11:34→15:16)
[2016-07-28] MEDS: LACTULOSE SYRUP 20 GM/30 ML UDCUP PO SCH (11:34)
[2016-07-28] MEDS: ENOXAPARIN SODIUM INJ 30 MG/0.3 ML DISP.SYRIN SUBCUT SCH (11:34)
[2016-07-28 16:23] VITALS: BP 124/77
== END 2016-07-28 16:49 | disposition home or self-care (01) ==
LOC: ER 10:24 → UNDOADMOB 16:10 → EH 16:10 → 4N 18:33
PROVIDERS: ADMIT Family Medicine; ATTEND Family Medicine
PROC: 3E033GC Introduction of Other Therapeutic Substance into Peripheral Vein, Percutaneous Approach (ICD-10-PCS; principal; 2016-07-26)
PROC: 3E033GC Introduction of Other Therapeutic Substance into Peripheral Vein, Percutaneous Approach (ICD-10-PCS; 2016-07-26)
PROC: 3E0337Z Introduction of Electrolytic and Water Balance Substance into Peripheral Vein, Percutaneous Approach (ICD-10-PCS; 2016-07-26)
PROC: 30233N1 Transfusion of Nonautologous Red Blood Cells into Peripheral Vein, Percutaneous Approach (ICD-10-PCS; 2016-07-26)
DX: C67.1 Malignant neoplasm of dome of bladder (principal); C78.7 Secondary malignant neoplasm of liver and intrahepatic bile duct; C79.49 Secondary malignant neoplasm of other parts of nervous system; C78.00 Secondary malignant neoplasm of unspecified lung; K56.49 Other impaction of intestine; N39.0 Urinary tract infection, site not specified; N13.1 Hydronephrosis with ureteral stricture, not elsewhere classified; G89.3 Neoplasm related pain (acute) (chronic); K59.03 Drug induced constipation; T40.2X5A Adverse effect of other opioids, initial encounter; I25.2 Old myocardial infarction; I12.9 Hypertensive chronic kidney disease with stage 1 through stage 4 chronic kidney disease, or unspecified chronic kidney disease; N18.9 Chronic kidney disease, unspecified; R11.2 Nausea with vomiting, unspecified; Z66 Do not resuscitate; Z85.528 Personal history of other malignant neoplasm of kidney; Z90.5 Acquired absence of kidney; F17.200 Nicotine dependence, unspecified, uncomplicated
CPT/HCPCS: 99291; 96361; 96374; 96375; 86900; 86901; 36415 ×3; 87086; 36430; 86850; 85025 ×2; 85610; 80048 ×2; 80053; 81001; 86920; 74000; G0378 ×4; P9016; J1200; A9270 ×13; J3490 ×3; J2765; J2405; J1650 ×2; J7030 ×3; S0119

== ENCOUNTER 2016-08-16 13:56 | Outpatient (CLI) | payer MEDICARE, MEDICAID ==
[~2016-08-16 13:56] MED LIST changes: +LIDOCAINE 2% JELLY 5 ML TUBE ONE; +MORPHINE SULFATE 10 MG/ML INJ ONE; +ONDANSETRON HCL INJ/PF 4 MG/2 ML SDV IV PRN; +ONDANSETRON HCL INJ/PF 4 MG/2 ML SDV ONE
[2016-08-16 14:05] VITALS: BP 129/76
== END 2016-08-16 15:21 | disposition home or self-care (01) ==
LOC: II 13:56 → 5TH 13:57 → II 15:21
PROVIDERS: ATTEND Specialist
PROC: 3E0330M Introduction of Antineoplastic, Monoclonal Antibody, into Peripheral Vein, Percutaneous Approach (ICD-10-PCS; principal; 2016-08-16)
PROC: 3E033GC Introduction of Other Therapeutic Substance into Peripheral Vein, Percutaneous Approach (ICD-10-PCS; 2016-08-16)
DX: Z51.11 Encounter for antineoplastic chemotherapy (principal); C67.9 Malignant neoplasm of bladder, unspecified
CPT/HCPCS: 96413; 96375; J2405; J7050; C9483; 96374; J2270

== ENCOUNTER → 2016-08-31 | Outpatient (CLI) | payer MEDICARE, MEDICAID | LOC: RAD 07:41 | PROVIDERS: ATTEND Specialist | DX: C67.9 Malignant neoplasm of bladder, unspecified (principal); C78.7 Secondary malignant neoplasm of liver and intrahepatic bile duct | CPT/HCPCS: 71260; 74177 ==

== ENCOUNTER 2016-09-06 13:30 | Outpatient (CLI) | payer MEDICARE, MEDICAID ==
[~2016-09-06 13:30] MED LIST changes: -LIDOCAINE 2% JELLY 5 ML TUBE ONE; -MORPHINE SULFATE 10 MG/ML INJ ONE; -ONDANSETRON HCL INJ/PF 4 MG/2 ML SDV ONE
[2016-09-06 14:18] VITALS: BP 138/79
[2016-09-06] MEDS ORDERED: DEXAMETHASONE SOD PHOS INJ 10 MG/1 ML VIAL IV ONE (15:30)
== END 2016-09-06 15:25 | disposition home or self-care (01) ==
LOC: II 13:30 → 5TH 13:31 → II 15:25
PROVIDERS: ATTEND Specialist
PROC: 3E03305 Introduction of Other Antineoplastic into Peripheral Vein, Percutaneous Approach (ICD-10-PCS; principal; 2016-09-06)
PROC: 3E033GC Introduction of Other Therapeutic Substance into Peripheral Vein, Percutaneous Approach (ICD-10-PCS; 2016-09-06)
PROC: 3E033GC Introduction of Other Therapeutic Substance into Peripheral Vein, Percutaneous Approach (ICD-10-PCS; 2016-09-06)
DX: Z51.11 Encounter for antineoplastic chemotherapy (principal)
CPT/HCPCS: 96413; 96367; 96375; J2405; J7050; J1100; C9483; 96374

== ENCOUNTER 2016-09-18 16:04 | Emergency (ER) | payer MEDICARE, MEDICAID ==
--- NOTE | 2016-09-18 16:18 | ER Document Report ---
ED Neuro Symptoms/Deficit - General Chief Complaint: S/S of Possible Stroke Stated Complaint: STROKE LIKE SYMPTOMS Notes: The patient is a 65-year-old male, past medical history bladder cancer with metastases that are responding well to immunotherapy, chronic bilateral leg weakness from spinal stenosis and prior met, presents with 10 minutes of left arm and leg shaking. After the shaking resolved, he felt numbness and weakness in his left arms. The symptoms started 65 minutes prior to arrival in the emergency room. He is feeling that his left arm strength is returning. He denies headache, blurry vision, difficulty swallowing, nausea, vomiting, chest pain, shortness of breath, fevers or back pain. TRAVEL OUTSIDE OF THE [place] IN LAST 30 DAYS: No - Related Data Allergies/Adverse Reactions: Penicillins Allergy (Verified 04/22/15 12:50) rash Past Medical History - General Information source: Patient - Social History Smoking Status: Unknown if Ever Smoked Family History: Reviewed & Not Pertinent - Past Medical History Cardiac Medical History: Reports: Hx Heart Attack, Hx Hypertension Denies: Hx Coronary Artery Disease Pulmonary Medical History: Denies: Hx Asthma, Hx Bronchitis, Hx COPD, Hx Pneumonia Neurological Medical History: Denies: Hx Cerebrovascular Accident, Hx Seizures Renal/ Medical History: Denies: Hx Peritoneal Dialysis Malignancy Medical History: Reports Hx Renal (Kidney) Cancer GI Medical History: Reports: Hx Gastroesophageal Reflux Disease Musculoskeltal Medical History: Reports Hx Arthritis - HANDS Past Surgical History: Reports: Hx Kidney (Renal Surgery) - 75% resection of the left kidney., Hx Urinary Tract Surgery - Laser procedure on a bladder cancer , Other - . jennifer bladder prior partial nephrectomy - Immunizations Immunizations up to date: Yes Hx Diphtheria, Pertussis, Tetanus Vaccination: Yes Hx Pneumococcal Vaccination: 03/04/11 Review of Systems - Review of Systems Notes: REVIEW OF SYSTEMS: CONSTITUTIONAL: -fevers, -chills EENT: -eye pain, -difficulty swallowing, -nasal congestion CARDIOVASCULAR:-chest pain, -syncope. RESPIRATORY: -cough, -SOB GASTROINTESTINAL: -abdominal pain, -nausea, -vomiting, -diarrhea GENITOURINARY: -dysuria, -hematuria MUSCULOSKELETAL: -back pain, -neck pain SKIN: -rash or skin lesions. HEMATOLOGIC: -easy bruising or bleeding. LYMPHATIC: -swollen, enlarged glands. NEUROLOGICAL: -altered mental status or loss of consciousness, -headache, +left arm and leg weakness and numbness PSYCHIATRIC: -anxiety, -depression. ALL OTHER SYSTEMS REVIEWED AND NEGATIVE. Physical Exam - Notes Notes: PHYSICAL EXAMINATION: GENERAL: Well-appearing, well-nourished and in no acute distress. HEAD: Atraumatic, normocephalic. EYES: Pupils equal round and reactive to light, extraocular movements intact, sclera anicteric, conjunctiva are normal. ENT: nares patent, oropharynx clear without exudates. Moist mucous membranes. NECK: Normal range of motion, supple without lymphadenopathy LUNGS: Breath sounds clear to auscultation bilaterally and equal. No wheezes rales or rhonchi. HEART: Regular rate and rhythm without murmurs ABDOMEN: Soft, nontender, normoactive bowel sounds. No guarding, no rebound. No masses appreciated. EXTREMITIES: Decreased left shoulder range of motion. Strong pulses in all 4 extremities. NEUROLOGICAL: Cranial nerves grossly intact. Normal speech. 5/5 strength in all 4 extremities. Decreased sensation in left upper extremity. PSYCH: Normal mood, normal affect. SKIN: Warm, Dry, normal turgor, no rashes or lesions noted. Course - Re-evaluation Re-evalutation: Patient with weakness after his spasticity/shaking event on his left side. Weakness resolved, but he still has decreased sensation in his left upper extremity. CT shows new metastatic lesions, but no edema or midline shift. Patient not a TPA candidate due to the lesions. Spoke to his oncologist, Dr. Lucy Chapman, and she recommends starting 10 mg Decadron every 6 hours and Keppra 500 mg twice a day. Offered patient admission for further evaluation and treatment, but patient would like to be home with his family. Patient will call his oncologist office tomorrow. Called back Dr. Lucy Chapman and she said that she will see patient tomorrow. Given strict return precautions and he understands. - Laboratory Result Diagrams: 09/18/16 16:25 09/18/16 16:25 - Diagnostic Test Radiology reviewed: Image reviewed, Reports reviewed Radiology results interpreted by me: Head CT W/WO: new brain metastatic lesions Critical Care Note - Critical Care Note Total time excluding time spent on procedures (mins): 40 ED Alteplase Inc/Exc Criteria - Inclusion Criteria: 1: Patient presented to ED within 3 hours of acute ischemic stroke symptom onset ? -: Yes 2: Did baseline CT exclude intracranial hemorrhage and/or other risk factors? -: No - metastatic lesions 3: Is the age of the patient 18 years of age or greater? -: Yes : If any of the above questions are answered "NO" then stop, patient is not a candidate for Alteplase, : If all of the above questions are answered "YES" then continue with Exclusion Criteria. - Exclusion Criteria: 1: Is there evidence of intracranial hemorrhage on baseline CT? 2: Is there suspicion of subarachnoid hemorrhage (even if CT negative)? 3: Is there a history of serious head trauma, recent previous stroke or NV within 3 months? 4: Does the patient have a clinical presentation consistent with NV or post-NV pericarditis? 5: Is there history of intracranial hemorrhage? 6: On repeated measurement is Systolic BP greater than 185mmHg or Diastolic BP greater that 110 mmHg and is aggressive treatment needed to reduce blood pressure to these limits (e.g. constant infusion of an anti-hypertensive)? 7: Did the patient awake with stroke symptoms? 8: Has the patient had a lumbar puncture or an arterial puncture at a non- compressile site within 7 days? 9: With in the last 14 days did the patient have surgery or major trauma? 10: Is the patient or less than 2 weeks? 11: Was there any active bleeding or acute trauma? 12: Does the patient have intracranial neoplasm, arteriovenous malformation or aneurysm? 13: Does the patient have abnormal glucose (less than 50 or greater than 400mg/ dl)? Record glucose in Comment. 14: Patient has rapidly improving symptoms at the time Alteplase is to be Administered. 15: Does the patient have any risks for bleeding, including but not limited to: a.: Current use of Coumadin with PT greater than 15 seconds or INR greater than 1.7. b.: Current use of Pradaxa (Dabigatran). c.: Heparin administereed within the past 48 hours and PTT elevated. d.: Platelet count less than 100,000/mm. e.: Major surgery or serious trauma within 14 days. f.: Gastrointestinal or gynecological urinary bleeding within 14 days. g.: Myocardial Infarction (NV) within 3 months. : If the answer to any of the above questions is "YES" then stop, the patient is not a candidate for Alteplase. : If the answer to all of the above questions is "NO" then the patient may be eligible for the Administration of Alteplase. : If the patient is noted to have seizure activity at onset of Stroke symptoms; Consult Neurologist for further evaluation. - The patient is: -: Included and is eligible to receive Alteplase. *Initiate bed placement at higher level of care* --: No - Lesions on brain Reviewd risks & benefits of thrombolytic therapy: I have reviewed the risks and benefits of thrombolytic therapy with the patient and/or his/her family. -: Excluded and not eligible to receive Alteplase for the above exclusions. -: Excluded and not eligible to receive Alteplase for other reasons (specify in comments): - Diagnosis of TIA: -: Patient presented with transient symptoms that are now resolved and no other neurologic findings are currently present. List symptoms in comments. -: No -: Patient is NOT a candidate for tPA. -: Yes -: ____(put name in comment) has been consulted for admission and continued evaluation of risk factor assessment. ED NIH Stroke Scale - NIH Stroke Scale When completed:: Before Alteplase *: 1. NIH scale should be completed with appropriate accompanying assessment tools. *: 2. The NIH should reflect what the patient is capable of doing and should not be coached by the clinician. 1a. Level of Consciousness: 0=Alert;keenly responsive -: 1=Drowsy -: 2=Obtunded -: 3=Coma/unresponsive or reflex to noxious stimuli. 1a. Responses: 0 1b. Orientation Questions: a. What month is it? -: b. How old are you? -: 0=Answers both questions correctly. -: 1=Answers one question correctly or patient is intubated or has orotracheal trauma. -: 2=Answers neither question correctly. 1b. Responses: 0 1c. Response to commands: a. Open and close eyes? -: b. Apprentice Architect and release hand? -: Credit is given despite weakness. Demonstration of task is permitted. Substitute command if hands cannot be used. -: 0=Performs both tasks correctly -: 1=Performs one task correctly -: 2=Performs neither task correctly 1c. Responses: 0 2. Gaze: Establish eye contact and instruct patient to "Follow my finger" -: 0=Normal -: 1=Partial gaze palsy. Gaze is abnormal in one or both eyes, but where forced deviation or total gaze paresis is not present. -: 2=Forced deviation or total gaze paresis. 2. Responses: 0 3. Visual [place]: Sees fingers in all four quadrants. -: 0=No visual loss. -: 1=Partial hemianopsia. -: 2=Complete hemianopsia. -: 3=Bilateral hemianopsia (including Cortical blindness) 3. Responses: 0 4. Facial Movement: Instruct patient to: -: a. Show me your teeth -: b. Raise your eyebrows -: c. Close your eyes -: d. Smile -: 0=Normal symmetrical movement -: 1=Minor paralysis (flattened nasolabial fold, asymmetry on smiling). -: 2=Partial paralysis (total or near total paralysis of lower face). -: 3=Complete paralysis of upper and lower face 4. Responses: 0 5. Motor functions (left arm): Alternate sides and extend each arm with palms down (90 degrees if sitting or 45 degrees for supine). -: 0=No drift;limb holds for full 10 seconds. -: 1=Drift; limb holds but drifts down before full 10 seconds, but does not hit bed. -: 2=Some effort against gravity; limb cannot get to or maintain position. -: 3=No effort against gravity; limb falls. -: 4=No movement. -: UN=Amputation, joint fusion, explain in comments. 5. Responses (left arm): 0 5. Motor Functions (right arm): Alternate sides and extend each arm with palms down (90 degrees if sitting or 45 degrees for supine). -: 0=No drift;limb holds for full 10 seconds. -: 1=Drift; limb holds but drifts down before full 10 seconds, but does not hit bed. -: 2=Some effort against gravity; limb cannot get to or maintain position. -: 3=No effort against gravity; limb falls. -: 4=No movement. -: UN=Amputation, joint fusion, explain in comments. 5. Responses (right arm): 0 6. Motor Functions (left leg): With patient lying supine, alternate sides and extend each leg (30 degrees always while supine). -: 0=No drift, leg holds position for full 5 seconds -: 1=Drift; leg falls before full 5 seconds but does not hit bed. -: 2=Some effort against gravity, leg falls to bed but some effort against gravity. -: 3=No effort against gravity, leg falls to bed immediately. -: 4=No movement. -: UN=Amputation, joint fusion; explain in comments. 6. Responses (left leg): 0 6. Motor Functions (right leg): With patient lying supine, alternate sides and extend each leg (30 degrees always while supine). -: 0=No drift, leg holds position for full 5 seconds -: 1=Drift; leg falls before full 5 seconds but does not hit bed. -: 2=Some effort against gravity, leg falls to bed but some effort against gravity. -: 3=No effort against gravity, leg falls to bed immediately. -: 4=No movement. -: UN=Amputation, joint fusion; explain in comments. 6. Responses (right leg): 0 7. Limb Ataxia: With eyes open instruct patient to: -: a. "Touch your finger to your nose". -: b. "Touch your heel to your sepulveda" -: 0=Absent -: 1=Present in one limb. -: 2=Present in two limbs. -: UN=Amputation or joint fusion; explain in comments. 7. Responses: 0 8. Sensory: Test sensation using pinprick or noxious stimuli. Test as many body parts as possible. -: 0=Normal;no sensory loss -: 1=Mile to moderate sensory loss (patient feels pin prick but is less sharp on affected side). -: 2=Severe or total sensory loss. 8. Responses: 1 9. Best Language: Instruct patient to: -: a. "Describe what you see in this picture." -: b. "Name the items in this picture." -: c. "Read these sentences." -: 0=No aphasia, normal -: 1=Mild to moderate aphasia. -: 2=Severe aphasia -: 3=Mute, global aphasia, no usable speech or auditory comprehension. 9. Responses: 0 10. Articulation, Dysarthia: Instruct patient to: -: "Read these words" or "Repeat these words" -: 0=Normal -: 1=Mild to moderate; patient may slur some words but can be understood without difficulty. -: 2=Severe; patients speech so slurred as to be unintelligible in the absence of dysphasia. -: UN=Intubated or other physical barrier, explain in comments. 10. Responses: 0 11. Extinction or inattention: 0=No abnormality -: 1= Visual, tactile, auditory, spatial, or personal inattention or extinction to bilateral simulation in one or the sensory modalities. -: 2=Profound nagi-inattention or nagi-inattention to more than one modality; does not recognize own hand. 11. Responses: 0 Total Score: 1 Discharge - Discharge Clinical Impression: Brain lesion, Left-sided weakness Condition: Stable Disposition: HOME, SELF-CARE Additional Instructions: Your CAT scan shows evidence of new metastatic brain lesions. Take the steroids and anti-seizure medication as prescribed and follow up with Dr. Lucy Chapman tomorrow morning. Return immediately to the emergency room if you notice any worsening symptoms or any other concerns. Prescriptions: Dexamethasone [Decadron 4 Mg Tablet] 10 mg PO Q6H 7 Days Levetiracetam [Keppra 500 mg Tablet] 500 mg PO Q12 #20 tablet Referrals: CLARISSA MARIA MD [Primary Care Provider] - Follow up as needed LUCY CHAPMAN MD [ACTIVE STAFF] - Follow up as needed
[2016-09-18 16:35] LABS: PARTIAL THROMBOPLASTIN TIME 21.6 SEC (23.5-35.8); PROTHROMBIN TIME 12.9 SEC (11.4-15.4)
[2016-09-18 16:37] LABS: HEMATOCRIT 40.2 % (37.9-51.0); HEMOGLOBIN 13.3 g/dL (13.5-17.0); HGB HCT DIFFERENCE -0.3; MEAN CORPUSCULAR HEMOGLOBIN 31.2 pg (27.0-33.4); MEAN CORPUSCULAR HGB CONC 33.1 g/dL (32.0-36.0); MEAN CORPUSCULAR VOLUME 94 fl (80-97); RED BLOOD COUNT 4.27 10^6/uL (4.35-5.55); RED CELL DISTRIBUTION WIDTH 25.2 % (11.5-14.0); WHITE BLOOD COUNT 11.1 10^3/uL (4.0-10.5)
[2016-09-18 16:49] LABS: ALANINE AMINOTRANSFERASE 35 U/L (21-72); ALBUMIN 3.5 g/dL (3.5-5.0); ALKALINE PHOSPHATASE 104 U/L (38-126); ANION GAP 11 (5-19); ASPARTATE AMINO TRANSFERASE 27 U/L (17-59); BILIRUBIN,DIRECT 0.4 mg/dL (0.0-0.4); BILIRUBIN,TOTAL 0.9 mg/dL (0.2-1.3); BLOOD UREA NITROGEN 57 mg/dL (7-20); CALCIUM 9.1 mg/dL (8.4-10.2); CARBON DIOXIDE 23 mmol/L (22-30); CHLORIDE 109 mmol/L (98-107); CREATINE KINASE < 20 U/L (55-170); CREATININE RESULT 1.43 mg/dL (0.52-1.25); GLUCOSE 96 mg/dL (75-110); POTASSIUM 4.8 mmol/L (3.6-5.0); SODIUM 143.2 mmol/L (137-145); TOTAL PROTEIN 6.3 g/dL (6.3-8.2)
[2016-09-18 16:59] LABS: CREATINE KINASE MB 1.49 ng/mL (<4.55); TROPONIN I 0.023 ng/mL
[2016-09-18 17:03] LABS: BAND NEUTROPHILS % (MANUAL) 2 % (3-5); BASOPHILS % (MANUAL) 0 % (0-2); EOSINOPHILS % (MANUAL) 0 % (0-6); LYMPHOCYTES % (MANUAL) 22 % (13-45); NUCLEATED RED BLOOD CELLS 1 /100 WBC (0); TOTAL CELLS COUNTED 100
[2016-09-18 17:05] LABS: ANISOCYTOSIS 3+; OVALOCYTES SLIGHT; POIKILOCYTOSIS SLIGHT; TARGET CELLS SLIGHT
[2016-09-18 17:08] LABS: POLYCHROMASIA SLIGHT
[2016-09-18] MEDS ORDERED: LEVETIRACETAM 500 MG TABLET PO ONE (18:52)
[2016-09-18] MEDS ORDERED: DEXAMETHASONE SOD PHOS INJ 10 MG/1 ML VIAL IV ONE (18:52)
--- NOTE | 2016-09-18 19:02 | EKG REPORT ---
SEVERITY:- NORMAL ECG - SINUS RHYTHM : Confirmed by: Osei Prado 18-Sep-2016 19:01:26
[2016-09-18 19:29] VITALS: BP 138/97
== END 2016-09-18 19:55 | disposition home or self-care (01) ==
LOC: ER 16:04
DX: G93.9 Disorder of brain, unspecified (principal); R53.1 Weakness; I10 Essential (primary) hypertension; Z88.0 Allergy status to penicillin; Z85.51 Personal history of malignant neoplasm of bladder; Z85.528 Personal history of other malignant neoplasm of kidney; I25.2 Old myocardial infarction
CPT/HCPCS: 93005; 99291; 96374; 36415; 82553; 82550; 85025; 85610; 85730; 80053; 84484; 71010; 70450; 70460; 93010; A9270; J1100

== ENCOUNTER 2016-09-27 15:07 | Outpatient (CLI) | payer MEDICARE, MEDICAID ==
[2016-09-27 16:56] VITALS: BP 119/98
== END 2016-09-27 17:00 | disposition home or self-care (01) ==
LOC: II 15:07 → 5TH 15:22 → II 17:00
PROVIDERS: ATTEND Specialist
PROC: 3E0330M Introduction of Antineoplastic, Monoclonal Antibody, into Peripheral Vein, Percutaneous Approach (ICD-10-PCS; principal; 2016-09-27)
PROC: 3E033GC Introduction of Other Therapeutic Substance into Peripheral Vein, Percutaneous Approach (ICD-10-PCS; 2016-09-27)
DX: Z51.11 Encounter for antineoplastic chemotherapy (principal)
CPT/HCPCS: 96413; 96375; J2405; J7050; C9483

== ENCOUNTER 2016-09-29 13:28 | Inpatient (IN) | payer MEDICARE, MEDICAID ==
[2016-09-29] MEDS ORDERED: LIDOCAINE 2% URO-JET 5 ML KIT MM ONE (15:27)
--- NOTE | 2016-09-29 15:36 | ER Document Report ---
Addendum entered and electronically signed by BJ CARRERO NP 09/29/16 19:35 : Course - Re-evaluation Re-evalutation: 09/29/16 19:34 bedside report and handoff given to Long BUTT - Vital Signs Vital signs: Temp Pulse Resp BP Pulse Ox 98.3 F 84 20 173/107 H 94 09/29/16 13:50 09/29/16 13:50 09/29/16 16:00 09/29/16 13:50 09/29/16 13:50 - Laboratory Result Diagrams: 09/29/16 15:55 09/29/16 17:50 Laboratory results interpreted by me: 09/29/16 09/29/16 09/29/16 15:55 16:18 17:50 RDW 24.7 H Seg Neuts % (Manual) 90 H Lymphocytes % (Manual) 3 L Abs Neuts (Manual) 9.7 H Abs Lymphs (Manual) 0.3 L Sodium 128.3 L Potassium 7.5 H* Chloride 97 L Carbon Dioxide 7 L* Anion Gap 24 H BUN 183 H Creatinine 3.55 H Est GFR ( Amer) 21 L Est GFR (Non-Af Amer) 17 L Direct Bilirubin 0.8 H Alkaline Phosphatase 137 H Creatine Kinase < 20 L Urine Protein 100 H Urine Glucose (UA) 50 H Urine Blood SMALL H Ur Leukocyte Esterase TRACE H Original Note: ED GI/ - General Mode of Arrival: Medic Information source: Patient TRAVEL OUTSIDE OF THE [place] IN LAST 30 DAYS: No - HPI Patient complains to provider of: Abdominal pain. No: Vomiting Onset: This afternoon Timing/Duration: Worse Quality of pain: Achy Pain Level: 4 Location: Pelvis Associated symptoms: Loss of appetite, Urinary retention. denies: Chest pain, Diarrhea, Fever, Vomiting Exacerbated by: Denies Relieved by: Denies Similar symptoms previously: No Recently seen / treated by doctor: Yes <BJ CARRERO - Last Filed: 09/29/16 19:34> <SEJAL HAMILTON - Last Filed: 09/29/16 22:23> - General Chief Complaint: Inability to Void Stated Complaint: URINARY PROBLEM Notes: Patient has a history of metastatic bladder cancer with brain metastases. Patient has been lethargic for the past 4 days. states that patient had a little bit of urine in his diaper this morning but did not have anything out after about 8 AM. also states that patient's had a purulent discharge from the penis. Patient complains of lower pelvic pain and low back pain. Patient recently just started radiation treatment for his metastatic brain cancer on Sunday. Patient's states he's had bilateral lower extremity weakness for several months. does state that up until 3 weeks ago patient was ambulatory with a cane at home. Patient has been unable to walk for the past 10 days. Patient has had a mild cough for the past 2 days. 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 ( BJ CARRERO) - Related Data Allergies/Adverse Reactions: Penicillins Allergy (Verified 09/29/16 13:50) rash Past Medical History - General Information source: Patient, Relative - Social History Smoking Status: Former Smoker Frequency of alcohol use: None Drug Abuse: Marijuana - Recently quit Lives with: Family Family History: Reviewed & Not Pertinent Patient has suicidal ideation: No Patient has homicidal ideation: No - Past Medical History Cardiac Medical History: Reports: Hx Heart Attack, Hx Hypertension Denies: Hx Coronary Artery Disease Pulmonary Medical History: Denies: Hx Asthma, Hx Bronchitis, Hx COPD, Hx Pneumonia Neurological Medical History: Denies: Hx Cerebrovascular Accident, Hx Seizures Renal/ Medical History: Denies: Hx Peritoneal Dialysis Malignancy Medical History: Reports Hx Renal (Kidney) Cancer - With metastases to the brain, liver GI Medical History: Reports: Hx Gastroesophageal Reflux Disease Musculoskeltal Medical History: Reports Hx Arthritis - HANDS, Reports Other - Spinal stenosis Past Surgical History: Reports: Hx Kidney (Renal Surgery) - 75% resection of the left kidney., Hx Urinary Tract Surgery - Laser procedure on a bladder cancer , Other - . jennifer bladder prior partial nephrectomy - Immunizations Immunizations up to date: Yes Hx Diphtheria, Pertussis, Tetanus Vaccination: Yes Hx Pneumococcal Vaccination: 03/04/11 <BJ CARRERO - Last Filed: 09/29/16 19:34> Review of Systems - Review of Systems Constitutional: Weakness, Weight loss. denies: Fever EENT: No symptoms reported Cardiovascular: No symptoms reported. denies: Chest pain Respiratory: Cough Gastrointestinal: Abdominal pain, Poor appetite, Poor fluid intake. denies: Diarrhea Genitourinary: Retention Male Genitourinary: Penile discharge Musculoskeletal: Back pain Skin: No symptoms reported Hematologic/Lymphatic: No symptoms reported Neurological/Psychological: Confusion - Occasional episodes of confusion, Weakness, Other - Inability to ambulate for the past 10 days <BJ CARRERO - Last Filed: 09/29/16 19:34> Physical Exam - General General appearance: Lethargic In distress: Mild - HEENT Head: Normocephalic, Atraumatic Eyes: Normal Nasal: Normal Mouth/Lips: Normal Mucous membranes: Dry Pharynx: Normal Neck: Anterior cervical chain, Lymphadenopathy - Respiratory Respiratory status: No respiratory distress Chest status: Nontender Breath sounds: Rhonchi Chest palpation: Normal - Cardiovascular Rhythm: Regular Heart sounds: S1 appreciated - Abdominal Inspection: Normal Distension: No distension Bowel sounds: Normal Tenderness: Tender - Lower pelvic tenderness Organomegaly: No organomegaly - Genitourinary Inspection: Penile discharge - Back Back: Tender - Lumbar paraspinal tenderness, CVA tenderness - Bilateral - Extremities General upper extremity: Normal inspection, Normal strength General lower extremity: Normal inspection, Other - Bilateral lower extremity weakness - Neurological V[place] Coma Scale Eye Opening: Spontaneous [place] Coma Scale Verbal: Oriented [place] Coma Scale Motor: Obeys Commands Vahid Coma Scale Total: 15 - Psychological Associated symptoms: Flat affect - Skin Skin Temperature: Warm Skin Moisture: Dry Skin Color: Normal <ALISE,KELTEGAN - Last Filed: 09/29/16 19:34> <SEJAL HAMILTON - Last Filed: 09/29/16 22:23> - Vital signs Vitals: Temp Pulse Resp BP Pulse Ox 98.3 F 84 20 173/107 H 94 09/29/16 13:50 09/29/16 13:50 09/29/16 13:50 09/29/16 13:50 09/29/16 13:50 - General Notes: Cachectic (ALISEMELISSAYASIRCELINA) Course - Laboratory Result Diagrams: 09/29/16 15:55 09/29/16 17:50 - Diagnostic Test Radiology reviewed: Reports reviewed <ALISEBJ - Last Filed: 09/29/16 19:34> - Laboratory Result Diagrams: 09/29/16 15:55 09/29/16 17:50 <SEJAL HAMILTON - Last Filed: 09/29/16 22:23> - Re-evaluation Re-evalutation: 09/29/16 15:58 Patient denies any chest pain symptoms at this time. Discussed patient CODE STATUS with , states that he does not want to be sustained on any kind of mechanical ventilation but that she would not withhold nutrition. states that he has had lower extremity weakness since July but was able to walk up until 10 days ago. Consulted with Dr. Lopez regarding patient's exam findings and inability to void. Recommends MRI of the lumbar spine with and without IV contrast. 09/29/16 16:44 Lab called stating that patient's unofficial potassium is elevated at 7.5, states that CO2 is 8. Labs states that they will come in redraw patient for confirmation. Discussed these results with Dr. Hamilton who recommends giving calcium gluconate 1 g IV as well as albuterol. 09/29/16 17:07 Nurse reports that patient had 700 mL's of urine after Vega was inserted. 09/29/16 19:00 Dr. Hamilton to bedside to assist with EJ, IV started. Recommends giving IV insulin 10 units as well as an amp of D50 IV. Consulted with patient's primary doctor Dr. Valencia who additionally recommends giving patient 15 mg of Kayexalate every 6 hours, as well as managing his pain symptoms. Dr. Valencia agreeable to admit patient to IMCU unit (BJ CARRERO) I personally evaluated this patient. Pt ill appearing, awake but sleepy, able to converse and answer questions. Left EJ PIV placed and IV D50 and Insulin given for hyperkalemia, as well as Lasix, albuterol and kayexelate. MRI ordered to assess for possible tumor involvement in spine, as patient was ambulatory as recently as 10 days ago. Pt to be admitted to Dr. Valencia. (SEJAL HAMILTON) - Vital Signs Vital signs: Temp Pulse Resp BP Pulse Ox 98.3 F 84 16 171/115 H 96 09/29/16 13:50 09/29/16 13:50 09/29/16 21:01 09/29/16 21:01 09/29/16 21:01 - Laboratory Laboratory results interpreted by me: 04/28/17 04/28/17 04/28/17 15:55 16:18 17:50 RDW 24.7 H Seg Neuts % (Manual) 90 H Lymphocytes % (Manual) 3 L Abs Neuts (Manual) 9.7 H Abs Lymphs (Manual) 0.3 L Sodium 128.3 L Potassium 7.5 H* Chloride 97 L Carbon Dioxide 7 L* Anion Gap 24 H BUN 183 H Creatinine 3.55 H Est GFR ( Amer) 21 L Est GFR (Non-Af Amer) 17 L Direct Bilirubin 0.8 H Alkaline Phosphatase 137 H Creatine Kinase < 20 L Urine Protein 100 H Urine Glucose (UA) 50 H Urine Blood SMALL H Ur Leukocyte Esterase TRACE H Labs- Entire Visit 09/29/16 09/29/16 09/29/16 15:55 15:55 15:55 WBC 10.4 RBC 5.11 Hgb 16.1 Hct 47.7 MCV 93 MCH 31.6 MCHC 33.8 RDW 24.7 H Plt Count 150 Total Counted 100 Seg Neutrophils % Not Reportable Seg Neuts % (Manual) 90 H Band Neutrophils % 3 Lymphocytes % Not Reportable Lymphocytes % (Manual) 3 L Monocytes % Not Reportable Monocytes % (Manual) 4 Eosinophils % Not Reportable Eosinophils % (Manual) 0 Basophils % Not Reportable Basophils % (Manual) 0 Absolute Neutrophils Not Reportable Abs Neuts (Manual) 9.7 H Absolute Lymphocytes Not Reportable Abs Lymphs (Manual) 0.3 L Absolute Monocytes Not Reportable Abs Monocytes (Manual) 0.4 Absolute Eosinophils Not Reportable Absolute Eos (Manual) 0.0 Absolute Basophils Not Reportable Abs Basophils (Manual) 0.0 Toxic Granulation SLIGHT Platelet Comment ADEQUATE Poikilocytosis SLIGHT Anisocytosis 2+ Sodium Cancelled Potassium Cancelled Chloride Cancelled Carbon Dioxide Cancelled Anion Gap Cancelled BUN Cancelled Creatinine Cancelled Est GFR ( Amer) Cancelled Est GFR (Non-Af Amer) Cancelled Glucose Cancelled Calcium Cancelled Magnesium Cancelled Total Bilirubin Cancelled Direct Bilirubin Cancelled Indirect Bilirubin Cancelled Neonat Total Bilirubin Cancelled AST Cancelled ALT Cancelled Alkaline Phosphatase Cancelled Creatine Kinase Cancelled CK-MB (CK-2) 1.83 Troponin I 0.028 Total Protein Cancelled Albumin Cancelled Urine Color Urine Appearance Urine pH Ur Specific [place] Urine Protein Urine Glucose (UA) Urine Ketones Urine Blood Urine Nitrite Urine Bilirubin Urine Urobilinogen Ur Leukocyte Esterase Urine WBC (Auto) Urine RBC (Auto) Urine Bacteria (Auto) Urine Ascorbic Acid 09/29/16 09/29/16 16:18 17:50 WBC RBC Hgb Hct MCV MCH MCHC RDW Plt Count Total Counted Seg Neutrophils % Seg Neuts % (Manual) Band Neutrophils % Lymphocytes % Lymphocytes % (Manual) Monocytes % Monocytes % (Manual) Eosinophils % Eosinophils % (Manual) Basophils % Basophils % (Manual) Absolute Neutrophils Abs Neuts (Manual) Absolute Lymphocytes Abs Lymphs (Manual) Absolute Monocytes Abs Monocytes (Manual) Absolute Eosinophils Absolute Eos (Manual) Absolute Basophils Abs Basophils (Manual) Toxic Granulation Platelet Comment Poikilocytosis Anisocytosis Sodium 128.3 L Potassium 7.5 H* Chloride 97 L Carbon Dioxide 7 L* Anion Gap 24 H BUN 183 H Creatinine 3.55 H Est GFR ( Amer) 21 L Est GFR (Non-Af Amer) 17 L Glucose 100 Calcium 8.4 Magnesium 2.3 Total Bilirubin 1.3 Direct Bilirubin 0.8 H Indirect Bilirubin Not Reportable Neonat Total Bilirubin Not Reportable AST 21 ALT 44 Alkaline Phosphatase 137 H Creatine Kinase < 20 L CK-MB (CK-2) Troponin I Total Protein 6.9 Albumin 4.1 Urine Color BROWN Urine Appearance TURBID Urine pH 9.0 Ur Specific [place] 1.010 Urine Protein 100 H Urine Glucose (UA) 50 H Urine Ketones NEGATIVE Urine Blood SMALL H Urine Nitrite NEGATIVE Urine Bilirubin NEGATIVE Urine Urobilinogen NEGATIVE Ur Leukocyte Esterase TRACE H Urine WBC (Auto) 0 Urine RBC (Auto) 5 Urine Bacteria (Auto) TRACE Urine Ascorbic Acid NEGATIVE (BJ CARRERO) Discharge - Discharge Admitting Provider: [facility] Unit Admitted: IMCU <BJ CARRERO - Last Filed: 09/29/16 19:34> <SEJAL HAMILTON - Last Filed: 09/29/16 22:23> - Discharge Clinical Impression: Metastasis from bladder cancer, Hyperkalemia, Urinary retention, Hyponatremia Condition: Serious Disposition: ADMITTED INPATIENT
[2016-09-29 16:11] LABS: HEMATOCRIT 47.7 % (37.9-51.0); HEMOGLOBIN 16.1 g/dL (13.5-17.0); HGB HCT DIFFERENCE 0.6; MEAN CORPUSCULAR HEMOGLOBIN 31.6 pg (27.0-33.4); MEAN CORPUSCULAR HGB CONC 33.8 g/dL (32.0-36.0); MEAN CORPUSCULAR VOLUME 93 fl (80-97); RED BLOOD COUNT 5.11 10^6/uL (4.35-5.55); RED CELL DISTRIBUTION WIDTH 24.7 % (11.5-14.0); WHITE BLOOD COUNT 10.4 10^3/uL (4.0-10.5)
[2016-09-29 16:30] LABS: BAND NEUTROPHILS % (MANUAL) 3 % (3-5); BASOPHILS % (MANUAL) 0 % (0-2); EOSINOPHILS % (MANUAL) 0 % (0-6); LYMPHOCYTES % (MANUAL) 3 % (13-45); TOTAL CELLS COUNTED 100
[2016-09-29 16:31] LABS: ANISOCYTOSIS 2+; POIKILOCYTOSIS SLIGHT; TOXIC GRANULATION SLIGHT
[2016-09-29 16:34] LABS: CREATINE KINASE MB 1.83 ng/mL (<4.55); TROPONIN I 0.028 ng/mL
[2016-09-29] MEDS ORDERED: CALCIUM GLUCONATE 1000 MG/10 ML INJ IV ONE (16:43)
[2016-09-29] MEDS ORDERED: ALBUTEROL SULFATE 0.083% NEB 2.5 MG/3 ML AMPUL NEB ONE (16:44)
[2016-09-29] MEDS ORDERED: NORMAL SALINE 1000 ML 1,000 ML IV ONE (16:44)
[2016-09-29] MEDS ORDERED: MORPHINE SULFATE 10 MG/ML INJ IV ONE ×3 (17:05→19:33)
[2016-09-29 17:28] LABS: APPEARANCE,URINE TURBID; BILIRUBIN,URINE NEGATIVE (NEGATIVE); GLUCOSE, URINE 50 mg/dL (NEGATIVE); KETONES,URINE NEGATIVE (NEGATIVE); LEUKOCYTE ESTERASE,URINE TRACE (NEGATIVE); NITRITE,URINE NEGATIVE (NEGATIVE); PROTEIN,URINE 100 mg/dL (NEGATIVE); UROBILINOGEN,URINE NEGATIVE mg/dL (<2.0)
[2016-09-29 18:13] LABS: ALANINE AMINOTRANSFERASE 44 U/L (21-72); ALBUMIN 4.1 g/dL (3.5-5.0); ALKALINE PHOSPHATASE 137 U/L (38-126); ASPARTATE AMINO TRANSFERASE 21 U/L (17-59); BILIRUBIN,DIRECT 0.8 mg/dL (0.0-0.4); BILIRUBIN,TOTAL 1.3 mg/dL (0.2-1.3); CALCIUM 8.4 mg/dL (8.4-10.2); CHLORIDE 97 mmol/L (98-107); GLUCOSE 100 mg/dL (75-110); MAGNESIUM 2.3 mg/dL (1.6-2.3); SODIUM 128.3 mmol/L (137-145); TOTAL PROTEIN 6.9 g/dL (6.3-8.2)
[2016-09-29 18:38] LABS: BLOOD UREA NITROGEN 183 mg/dL (7-20)
[2016-09-29 18:40] LABS: CREATINE KINASE < 20 U/L (55-170)
[2016-09-29 18:43] LABS: CARBON DIOXIDE 7 mmol/L (22-30); POTASSIUM 7.5 mmol/L (3.6-5.0)
[2016-09-29 18:53] LABS: CREATININE RESULT 3.55 mg/dL (0.52-1.25)
[2016-09-29 18:54] LABS: ANION GAP 24 (5-19)
[2016-09-29] MEDS ORDERED: DEXTROSE 50%-WATER 25 GM/50 ML DISP.SYRIN IV ONE (19:05)
[2016-09-29] MEDS ORDERED: INSULIN REG, HUMAN 100 UNIT/ML 3 ML VIAL (PYX) IV ONE (19:05)
[2016-09-29] MEDS ORDERED: FUROSEMIDE INJ/PF 40 MG/4 ML SDV IV ONE (19:06)
[2016-09-29] MEDS ORDERED: SODIUM POLYSTYRENE SULFONATE 15 GM/60 ML PO ONE (19:17)
--- NOTE | 2016-09-29 19:39 | EKG REPORT ---
SEVERITY:- ABNORMAL ECG - SINUS RHYTHM LAD, CONSIDER LEFT ANTERIOR FASCICULAR BLOCK ABNORMAL T, CONSIDER ISCHEMIA, LATERAL LEADS : Confirmed by: Osei Prado 29-Sep-2016 19:38:17
[2016-09-29] MEDS ORDERED: NORMAL SALINE 1000 ML 1,000 ML IV PRN (21:09)
[2016-09-29] MEDS ORDERED: LABETALOL HCL INJ 20 MG/4 ML DISP.SYRIN IV ONE ×2 (22:26→23:36)
[2016-09-29] MEDS: SODIUM POLYSTYRENE SULFONATE 15 GM/60 ML PO SCH (22:54)
[2016-09-29 23:04] LABS: CALCIUM 8.6 mg/dL (8.4-10.2); CHLORIDE 101 mmol/L (98-107); CREATININE RESULT 3.39 mg/dL (0.52-1.25); GLUCOSE 111 mg/dL (75-110)
[2016-09-29 23:13] LABS: BLOOD UREA NITROGEN 178 mg/dL (7-20)
[2016-09-29 23:22] LABS: SODIUM 131.3 mmol/L (137-145)
[2016-09-29 23:29] LABS: ANION GAP 23 (5-19); CARBON DIOXIDE 7 mmol/L (22-30); POTASSIUM 6.4 mmol/L (3.6-5.0)
[2016-09-29] MEDS ORDERED: NITROGLYCERIN 2% OINTMENT 1 GM PACKET TP ONE (23:36)
[2016-09-29] MEDS ORDERED: CEFTRIAXONE 1 GM/D5W RTU 50 ML IV ONE (23:38)
[2016-09-30] MEDS ORDERED: NALOXONE HCL INJ/PF 0.4 MG/1 ML SDV ONE (01:29)
[2016-09-30] MEDS ORDERED: NALOXONE HCL INJ/PF 0.4 MG/1 ML SDV IV ONE ×2 (01:45→03:30)
[2016-09-30] MEDS ORDERED: HALOPERIDOL LACTATE INJ 5 MG/1 ML VIAL ONE (01:59)
[2016-09-30] MEDS ORDERED: DEXAMETHASONE 4 MG TABLET PO PRN (03:53)
[2016-09-30] MEDS ORDERED: HALOPERIDOL LACTATE INJ 5 MG/1 ML VIAL IM PRN (04:02)
--- NOTE | 2016-09-30 05:09 | PDOC H&P ---
History of Present Illness Admission Date/PCP: 09/30/16 01:25 CLARISSA MARIA MD Patient complains of: abdominal pain/cant void History of Present Illness: ÁLVARO SANDS is a 66 year old male wilth stage 4 bladder dome cancer metastatic to lungs, paraspinal, brain. Just finished a week of brain radiation on dexamethasone. Focal seizures started 9d ago. Cant walk anymore. Vega into neobladder yielded 700ml. After 3 small doses of morphine in the ER, he had apnea on floor responding to stimulation. He would not leave bipap on. He is still having periodic breathing after 2 doses of narcan. I switched fentanyl patch to haldol for pain and agitation. said no intubation. He told me 2 months ago he did not want CPR if it was hopeless. Past Medical History Cardiac Medical History: Reports: Hypertension Pulmonary Medical History: Reports: Chronic Obstructive Pulmonary Disease (COPD) EENT Medical History: Reports: None Neurological Medical History: Reports: Seizures Endocrine Medical History: Reports: None Renal/ Medical History: Reports: Chronic Kidney Disease Malignancy Medical History: Reports: Renal (Kidney) Cancer - 2001, Other GI Medical History: Reports: Gastroesophageal Reflux Disease Musculoskeltal Medical History: Reports: Arthritis - HANDS, Other - Spinal stenosis Traumatic Medical History: Reports: None Hematology: Reports: Anemia - chronic disease Infectious Medical History: Reports: None Past Surgical History Past Surgical History: Reports: Other - . jennifer bladder prior partial nephrectomy Social History Information Source: Dr. Jeffers Lives with: Family Smoking Status: Former Smoker Last Time Smoked: 2015 Frequency of Alcohol Use: Occasional Hx Recreational Drug Use: Yes Drugs: Marijuana Hx Prescription Drug Abuse: No - Advance Directive Resuscitation Status: Do Not Resuscitate Family History Family History: CAD, CVA, DM, Hypertension, Malignancy Parental Family History Reviewed: Yes Children Family History Reviewed: Yes Sibling(s) Family History Reviewed.: Yes Medication/Allergy Home Medications: Dexamethasone [Decadron 4 mg Tablet] 1 dose PO Q6H 09/29/16 Fentanyl [Duragesic 25 mcg/hr Transdermal Patch] 1 patch TD Q3D 09/29/16 Levetiracetam [Keppra 500 mg Tablet] 500 mg PO Q12 09/29/16 Allergies/Adverse Reactions: Penicillins Allergy (Verified 09/29/16 13:50) rash Review of Systems Constitutional: PRESENT: weakness. ABSENT: fever(s), headache(s) Nose, Mouth, and Throat: ABSENT: sore throat Cardiovascular: ABSENT: chest pain, dyspnea on exertion, orthropnea Respiratory: ABSENT: cough Gastrointestinal: PRESENT: abdominal pain, constipation. ABSENT: diarrhea, hematochezia, vomiting Genitourinary: PRESENT: difficulty urinating. ABSENT: dysuria, hematuria Musculoskeletal: PRESENT: back pain Neurological: PRESENT: abnormal movements Physical Exam Vital Signs: Temp Pulse Resp BP Pulse Ox 97.8 F 79 29 H 172/118 H 100 09/30/16 01:23 09/30/16 01:23 09/30/16 04:06 09/30/16 01:23 09/30/16 01:23 Mouth exam: PRESENT: dry mucosa Neck exam: ABSENT: lymphadenopathy, tenderness, thyromegaly, tracheal deviation Respiratory exam: PRESENT: clear to auscultation chase Cardiovascular exam: ABSENT: diastolic murmur, irregular rhythm, systolic murmur GI/Abdominal exam: ABSENT: mass, organolmegaly, tenderness Extremities exam: ABSENT: pedal edema Neurological exam: PRESENT: oriented to time Psychiatric exam: PRESENT: appropriate affect Results Laboratory Results: Abnormal - 24 hr 09/29/16 09/29/16 09/29/16 15:55 16:18 17:50 RDW 24.7 H Seg Neuts % (Manual) 90 H Lymphocytes % (Manual) 3 L Abs Neuts (Manual) 9.7 H Abs Lymphs (Manual) 0.3 L Sodium 128.3 L Potassium 7.5 H* Chloride 97 L Carbon Dioxide 7 L* Anion Gap 24 H BUN 183 H Creatinine 3.55 H Est GFR ( Amer) 21 L Est GFR (Non-Af Amer) 17 L Glucose Direct Bilirubin 0.8 H Alkaline Phosphatase 137 H Creatine Kinase < 20 L Urine Protein 100 H Urine Glucose (UA) 50 H Urine Blood SMALL H Ur Leukocyte Esterase TRACE H 09/29/16 22:30 RDW Seg Neuts % (Manual) Lymphocytes % (Manual) Abs Neuts (Manual) Abs Lymphs (Manual) Sodium 131.3 L Potassium 6.4 H* D Chloride Carbon Dioxide 7 L* Anion Gap 23 H BUN 178 H Creatinine 3.39 H Est GFR ( Amer) 22 L Est GFR (Non-Af Amer) 18 L Glucose 111 H Direct Bilirubin Alkaline Phosphatase Creatine Kinase Urine Protein Urine Glucose (UA) Urine Blood Ur Leukocyte Esterase Impressions: Chest X-Ray 09/29/16 15:33 IMPRESSION: Minimal atelectasis or fluid along the right minor fissure. Minimal bandlike atelectasis in the right lung base. Otherwise unremarkable study. Lumbar Spine MRI 09/29/16 16:02 IMPRESSION: ESSENTIALLY STABLE DEGREE OF ADVANCED MULTILEVEL DEGENERATIVE CHANGE OF THE LUMBAR SPINE WITH MODERATE TO SEVERE SPINAL CANAL STENOSIS AND NEURAL FORAMINAL NARROWING DETAILED ABOVE. SCLEROTIC LESION WITHIN THE S2 LEVEL COMPATIBLE WITH OSSEOUS METASTATIC DISEASE. OVERALL IMPROVED APPEARANCE OF METASTATIC DISEASE INVOLVING THE PERITONEUM M AND PARASPINAL MUSCLES. THERE IS A SINGLE LESIONS SEEN MEDIAL TO THE RIGHT KIDNEY NOT CONFIDENTLY IDENTIFIED ON THE MOST RECENT CT AND PRIOR MRI CONCERNING FOR NEW IN IMPLANT. RECOMMEND ATTENTION ON FOLLOWUP ONCOLOGY STUDIES. Assessment & Plan - Diagnosis (1) Metastasis from bladder cancer Is this a current diagnosis for this admission?: YesPlan: periodic breathing with brain mets & cerebral edema. Currently on bipap but suspect will today. DNR. Haldol for pain. (2) Acute on chronic kidney failure Is this a current diagnosis for this admission?: YesPlan: NS150 (3) Hyperkalemia Is this a current diagnosis for this admission?: YesPlan: SPS
[2016-09-30 05:39] LABS: CALCIUM 8.2 mg/dL (8.4-10.2); CHLORIDE 105 mmol/L (98-107); GLUCOSE 123 mg/dL (75-110); SODIUM 135.5 mmol/L (137-145)
[2016-09-30] MEDS: DEXAMETHASONE 4 MG TABLET PO SCH ×3 (05:55→18:23)
[2016-09-30 05:56] LABS: BLOOD UREA NITROGEN 183 mg/dL (7-20)
[2016-09-30] MEDS ORDERED: HALOPERIDOL LACTATE INJ 5 MG/1 ML VIAL IM SCH (06:00)
[2016-09-30 06:03] LABS: CARBON DIOXIDE 5 mmol/L (22-30); POTASSIUM 6.5 mmol/L (3.6-5.0)
[2016-09-30 06:14] LABS: ANION GAP 26 (5-19); CREATININE RESULT 3.49 mg/dL (0.52-1.25)
[2016-09-30] MEDS ORDERED: 1/2 NORMAL SALINE IV PRN ×2 (06:18)
[2016-09-30] MEDS ORDERED: SODIUM BICARBONATE IV PRN ×2 (06:18)
[2016-09-30] MEDS ORDERED: HALOPERIDOL LACTATE INJ 5 MG/1 ML VIAL IM ONE (09:30)
[2016-09-30] MEDS: LEVETIRACETAM 500 MG TABLET PO SCH ×2 (09:35→21:26)
[2016-09-30] MEDS: SODIUM POLYSTYRENE SULFONATE 15 GM/60 ML PO SCH ×4 (09:35→19:44)
[2016-09-30] MEDS ORDERED: FENTANYL 25 MCG/HR PATCH.TD72 TD SCH (10:00)
[2016-09-30] MEDS: 1/2 NORMAL SALINE 1,000 ML with SODIUM BICARBONATE 100 MEQ IV PRN ×4 (11:13→19:45)
[2016-09-30] MEDS ORDERED: HALOPERIDOL LACTATE INJ 5 MG/1 ML VIAL IV SCH (14:00)
[2016-09-30] MEDS: HALOPERIDOL LACTATE INJ 5 MG/1 ML VIAL IV SCH (18:23)
[2016-09-30] MEDS: CEFTRIAXONE 1 GM/D5W RTU 1 GM/50 ML RTUPB IV SCH (21:24)
[2016-10-01] MEDS: DEXAMETHASONE 4 MG TABLET PO SCH ×5 (00:16→23:10)
[2016-10-01] MEDS: HALOPERIDOL LACTATE INJ 5 MG/1 ML VIAL IV SCH ×3 (01:24→17:52)
[2016-10-01] MEDS: 1/2 NORMAL SALINE 1,000 ML with SODIUM BICARBONATE 100 MEQ IV PRN ×2 (03:28)
[2016-10-01 05:37] LABS: CALCIUM 8.3 mg/dL (8.4-10.2); CHLORIDE 104 mmol/L (98-107); GLUCOSE 101 mg/dL (75-110); SODIUM 140.1 mmol/L (137-145)
[2016-10-01 06:18] LABS: CREATININE RESULT 2.19 mg/dL (0.52-1.25)
[2016-10-01 06:19] LABS: POTASSIUM 3.9 mmol/L (3.6-5.0)
[2016-10-01 06:20] LABS: BLOOD UREA NITROGEN 136 mg/dL (7-20); CARBON DIOXIDE 16 mmol/L (22-30)
[2016-10-01 06:24] LABS: ANION GAP 20 (5-19)
--- NOTE | 2016-10-01 07:59 | PDOC PROGRESS REPORT ---
Subjective Progress Note for:: 10/01/16 Subjective:: diffuse pain. Wants bipap off. Physical Exam Vital Signs: Temp Pulse Resp BP Pulse Ox 97.7 F 101 H 13 148/106 H 98 10/01/16 00:45 10/01/16 02:00 10/01/16 04:08 10/01/16 00:45 10/01/16 00:45 Intake & Output 09/29/16 09/30/16 10/01/16 07:59 07:59 07:59 Intake Total 900 1820 Output Total 350 4450 Balance 550 -2630 General appearance: PRESENT: mild distress Respiratory exam: PRESENT: clear to auscultation chase Cardiovascular exam: ABSENT: diastolic murmur, irregular rhythm, systolic murmur GI/Abdominal exam: PRESENT: tenderness. ABSENT: mass, organolmegaly Extremities exam: ABSENT: pedal edema Neurological exam: PRESENT: oriented to time, oriented to situation Psychiatric exam: PRESENT: anxious Results Laboratory Results: 10/01/16 04:38 10/01/16 04:38 Sodium 140.1 Potassium 3.9 D Chloride 104 Carbon Dioxide 16 L D Anion Gap 20 H BUN 136 H D Creatinine 2.19 H Est GFR ( Amer) 36 L Est GFR (Non-Af Amer) 30 L Glucose 101 Calcium 8.3 L Impressions: Chest X-Ray 09/29/16 15:33 IMPRESSION: Minimal atelectasis or fluid along the right minor fissure. Minimal bandlike atelectasis in the right lung base. Otherwise unremarkable study. Lumbar Spine MRI 09/29/16 16:02 IMPRESSION: ESSENTIALLY STABLE DEGREE OF ADVANCED MULTILEVEL DEGENERATIVE CHANGE OF THE LUMBAR SPINE WITH MODERATE TO SEVERE SPINAL CANAL STENOSIS AND NEURAL FORAMINAL NARROWING DETAILED ABOVE. SCLEROTIC LESION WITHIN THE S2 LEVEL COMPATIBLE WITH OSSEOUS METASTATIC DISEASE. OVERALL IMPROVED APPEARANCE OF METASTATIC DISEASE INVOLVING THE PERITONEUM M AND PARASPINAL MUSCLES. THERE IS A SINGLE LESIONS SEEN MEDIAL TO THE RIGHT KIDNEY NOT CONFIDENTLY IDENTIFIED ON THE MOST RECENT CT AND PRIOR MRI CONCERNING FOR NEW IN IMPLANT. RECOMMEND ATTENTION ON FOLLOWUP ONCOLOGY STUDIES. Assessment & Plan - Diagnosis (1) Metastasis from bladder cancer Is this a current diagnosis for this admission?: YesPlan: apnea no better off opioids but pain worse on haldol 5tid. & patient want morphine & no bipap. (2) Acute on chronic kidney failure Is this a current diagnosis for this admission?: YesPlan: improving (3) Hyperkalemia Is this a current diagnosis for this admission?: YesPlan: improving. Good output. Stop bicarb. Decrease NS100 (4) Gram-negative bacteremia Is this a current diagnosis for this admission?: YesPlan: still on ceftri
[2016-10-01] MEDS: NORMAL SALINE 1000 ML 1,000 ML IV PRN ×2 (08:14→18:35)
[2016-10-01] MEDS: MORPHINE SULFATE 10 MG/ML INJ IV PRN ×5 (08:15→20:00)
[2016-10-01] MEDS: LEVETIRACETAM 500 MG TABLET PO SCH ×2 (09:19→22:46)
[2016-10-01] MEDS: CEFTRIAXONE 1 GM/D5W RTU 1 GM/50 ML RTUPB IV SCH (22:45)
[2016-10-02] MEDS: HALOPERIDOL LACTATE INJ 5 MG/1 ML VIAL IV SCH ×3 (01:19→17:15)
[2016-10-02] MEDS: MORPHINE SULFATE 10 MG/ML INJ IV PRN ×10 (02:15→23:49)
[2016-10-02 05:25] LABS: ANION GAP 17 (5-19); CALCIUM 8.8 mg/dL (8.4-10.2); CARBON DIOXIDE 17 mmol/L (22-30); CHLORIDE 107 mmol/L (98-107); CREATININE RESULT 1.35 mg/dL (0.52-1.25); GLUCOSE 87 mg/dL (75-110); POTASSIUM 3.7 mmol/L (3.6-5.0); SODIUM 140.7 mmol/L (137-145)
[2016-10-02 05:28] LABS: BLOOD UREA NITROGEN 71 mg/dL (7-20)
[2016-10-02] MEDS: NORMAL SALINE 1000 ML 1,000 ML IV PRN ×2 (06:23→17:15)
[2016-10-02] MEDS: DEXAMETHASONE 4 MG TABLET PO SCH ×4 (06:23→23:50)
--- NOTE | 2016-10-02 08:02 | PDOC PROGRESS REPORT ---
Subjective Progress Note for:: 10/02/16 Subjective:: diffuse pain but refused increase of morphine Physical Exam Vital Signs: Temp Pulse Resp BP Pulse Ox 97.7 F 88 20 160/89 H 95 10/02/16 04:08 10/02/16 06:55 10/02/16 04:08 10/02/16 04:08 10/02/16 04:08 Intake & Output 09/30/16 10/01/16 10/02/16 07:59 07:59 07:59 Intake Total 900 3770 2490 Output Total 350 4450 3300 Balance 550 -680 -810 Weight 290 lb 5.581 oz General appearance: PRESENT: mild distress Respiratory exam: PRESENT: clear to auscultation chase Cardiovascular exam: ABSENT: diastolic murmur, irregular rhythm, systolic murmur GI/Abdominal exam: PRESENT: tenderness - suprapubic. ABSENT: mass, organolmegaly Extremities exam: ABSENT: pedal edema Neurological exam: PRESENT: oriented to situation Psychiatric exam: PRESENT: appropriate affect Results Laboratory Results: 10/02/16 04:03 10/02/16 04:03 Sodium 140.7 Potassium 3.7 Chloride 107 Carbon Dioxide 17 L Anion Gap 17 BUN 71 H D Creatinine 1.35 H Est GFR ( Amer) > 60 Est GFR (Non-Af Amer) 53 L Glucose 87 Calcium 8.8 Impressions: Chest X-Ray 09/29/16 15:33 IMPRESSION: Minimal atelectasis or fluid along the right minor fissure. Minimal bandlike atelectasis in the right lung base. Otherwise unremarkable study. Lumbar Spine MRI 09/29/16 16:02 IMPRESSION: ESSENTIALLY STABLE DEGREE OF ADVANCED MULTILEVEL DEGENERATIVE CHANGE OF THE LUMBAR SPINE WITH MODERATE TO SEVERE SPINAL CANAL STENOSIS AND NEURAL FORAMINAL NARROWING DETAILED ABOVE. SCLEROTIC LESION WITHIN THE S2 LEVEL COMPATIBLE WITH OSSEOUS METASTATIC DISEASE. OVERALL IMPROVED APPEARANCE OF METASTATIC DISEASE INVOLVING THE PERITONEUM M AND PARASPINAL MUSCLES. THERE IS A SINGLE LESIONS SEEN MEDIAL TO THE RIGHT KIDNEY NOT CONFIDENTLY IDENTIFIED ON THE MOST RECENT CT AND PRIOR MRI CONCERNING FOR NEW IN IMPLANT. RECOMMEND ATTENTION ON FOLLOWUP ONCOLOGY STUDIES. Assessment & Plan - Diagnosis (1) Metastasis from bladder cancer Is this a current diagnosis for this admission?: YesPlan: knows he can have morphine increased above 2mg q2h prn. No more apnea. (2) Acute on chronic kidney failure Is this a current diagnosis for this admission?: YesPlan: improving on NS100 (3) Gram-negative bacteremia Is this a current diagnosis for this admission?: YesPlan: continue ceftri pending sensitivities (4) Hyperkalemia Is this a current diagnosis for this admission?: Yes
[2016-10-02] MEDS: LEVETIRACETAM 500 MG TABLET PO SCH ×2 (09:54→22:02)
[2016-10-02] MEDS: CEFTRIAXONE 1 GM/D5W RTU 1 GM/50 ML RTUPB IV SCH (22:01)
[2016-10-03] MEDS: HALOPERIDOL LACTATE INJ 5 MG/1 ML VIAL IV SCH ×3 (01:00→17:24)
[2016-10-03] MEDS: MORPHINE SULFATE 10 MG/ML INJ IV PRN ×8 (02:00→23:32)
[2016-10-03] MEDS: NORMAL SALINE 1000 ML 1,000 ML IV PRN (04:04)
[2016-10-03 05:17] LABS: ANION GAP 14 (5-19); BLOOD UREA NITROGEN 46 mg/dL (7-20); CALCIUM 9.4 mg/dL (8.4-10.2); CARBON DIOXIDE 20 mmol/L (22-30); CHLORIDE 108 mmol/L (98-107); CREATININE RESULT 0.93 mg/dL (0.52-1.25); GLUCOSE 111 mg/dL (75-110); POTASSIUM 3.8 mmol/L (3.6-5.0); SODIUM 141.9 mmol/L (137-145)
[2016-10-03] MEDS: DEXAMETHASONE 4 MG TABLET PO SCH ×4 (06:21→23:31)
--- NOTE | 2016-10-03 07:22 | PDOC PROGRESS REPORT ---
Subjective Progress Note for:: 10/03/16 Subjective:: pain all over Physical Exam Vital Signs: Temp Pulse Resp BP Pulse Ox 98.2 F 99 18 166/96 H 97 10/03/16 03:11 10/03/16 03:11 10/03/16 03:11 10/03/16 03:11 10/03/16 03:11 Intake & Output 10/01/16 10/02/16 10/03/16 07:59 07:59 07:59 Intake Total 3770 2490 3788 Output Total 4450 3300 2890 Balance -680 -810 898 Weight 290 lb 5.581 oz 298 lb 4.567 oz General appearance: PRESENT: mild distress Respiratory exam: PRESENT: clear to auscultation chase Cardiovascular exam: ABSENT: diastolic murmur, irregular rhythm, systolic murmur GI/Abdominal exam: PRESENT: tenderness - mild diffuse. ABSENT: mass, organolmegaly Neurological exam: PRESENT: oriented to situation Psychiatric exam: PRESENT: appropriate affect Results Laboratory Results: 10/03/16 04:35 10/03/16 04:35 Sodium 141.9 Potassium 3.8 Chloride 108 H Carbon Dioxide 20 L Anion Gap 14 BUN 46 H Creatinine 0.93 Est GFR ( Amer) > 60 Est GFR (Non-Af Amer) > 60 Glucose 111 H Calcium 9.4 Impressions: Chest X-Ray 09/29/16 15:33 IMPRESSION: Minimal atelectasis or fluid along the right minor fissure. Minimal bandlike atelectasis in the right lung base. Otherwise unremarkable study. Lumbar Spine MRI 09/29/16 16:02 IMPRESSION: ESSENTIALLY STABLE DEGREE OF ADVANCED MULTILEVEL DEGENERATIVE CHANGE OF THE LUMBAR SPINE WITH MODERATE TO SEVERE SPINAL CANAL STENOSIS AND NEURAL FORAMINAL NARROWING DETAILED ABOVE. SCLEROTIC LESION WITHIN THE S2 LEVEL COMPATIBLE WITH OSSEOUS METASTATIC DISEASE. OVERALL IMPROVED APPEARANCE OF METASTATIC DISEASE INVOLVING THE PERITONEUM M AND PARASPINAL MUSCLES. THERE IS A SINGLE LESIONS SEEN MEDIAL TO THE RIGHT KIDNEY NOT CONFIDENTLY IDENTIFIED ON THE MOST RECENT CT AND PRIOR MRI CONCERNING FOR NEW IN IMPLANT. RECOMMEND ATTENTION ON FOLLOWUP ONCOLOGY STUDIES. Assessment & Plan - Diagnosis (1) Metastasis from bladder cancer Is this a current diagnosis for this admission?: YesPlan: fentanyl 75 (2) Acute on chronic kidney failure Is this a current diagnosis for this admission?: YesPlan: bun 46 improved (3) Gram-negative bacteremia Is this a current diagnosis for this admission?: YesPlan: kleb resistant only amp. Continue ceftri (4) Hyperkalemia Is this a current diagnosis for this admission?: Yes
[2016-10-03] MEDS: LEVETIRACETAM 500 MG TABLET PO SCH ×2 (09:12→21:19)
[2016-10-03] MEDS ORDERED: FENTANYL 75 MCG/HR PATCH.TD72 TD SCH (10:00)
[2016-10-03] MEDS ORDERED: ONDANSETRON 4 MG TAB.RAPDIS PO PRN (16:21)
[2016-10-03] MEDS: CEFTRIAXONE 1 GM/D5W RTU 1 GM/50 ML RTUPB IV SCH (21:17)
[2016-10-04] MEDS: NORMAL SALINE 1000 ML 1,000 ML IV PRN (00:36)
[2016-10-04] MEDS: HALOPERIDOL LACTATE INJ 5 MG/1 ML VIAL IV SCH (01:25)
[2016-10-04 05:33] LABS: ANION GAP 13 (5-19); BLOOD UREA NITROGEN 48 mg/dL (7-20); CALCIUM 9.4 mg/dL (8.4-10.2); CARBON DIOXIDE 21 mmol/L (22-30); CHLORIDE 115 mmol/L (98-107); CREATININE RESULT 0.94 mg/dL (0.52-1.25); GLUCOSE 137 mg/dL (75-110); POTASSIUM 4.2 mmol/L (3.6-5.0); SODIUM 148.5 mmol/L (137-145)
[2016-10-04] MEDS: DEXAMETHASONE 4 MG TABLET PO SCH (05:41)
--- NOTE | 2016-10-04 07:58 | PDOC PROGRESS REPORT ---
Subjective Progress Note for:: 10/04/16 Subjective:: still pain. Nurse said less moaning. Got morphine 4h ago Physical Exam Vital Signs: Temp Pulse Resp BP Pulse Ox 97.4 F 104 H 24 H 174/94 H 88 L 10/04/16 05:37 10/04/16 07:00 10/04/16 05:37 10/04/16 05:37 10/04/16 05:37 Intake & Output 10/02/16 10/03/16 10/04/16 07:59 07:59 07:59 Intake Total 2490 3788 3020 Output Total 3300 2890 2800 Balance -810 898 220 Weight 290 lb 5.581 oz 298 lb 4.567 oz 295 lb 10.238 oz General appearance: PRESENT: no acute distress Respiratory exam: PRESENT: clear to auscultation chase Cardiovascular exam: ABSENT: clicks, irregular rhythm, systolic murmur GI/Abdominal exam: ABSENT: mass, organolmegaly, tenderness Extremities exam: ABSENT: pedal edema Neurological exam: PRESENT: other - stuporous Results Laboratory Results: 10/04/16 04:53 10/04/16 04:53 Sodium 148.5 H Potassium 4.2 Chloride 115 H Carbon Dioxide 21 L Anion Gap 13 BUN 48 H Creatinine 0.94 Est GFR ( Amer) > 60 Est GFR (Non-Af Amer) > 60 Glucose 137 H Calcium 9.4 Impressions: Chest X-Ray 09/29/16 15:33 IMPRESSION: Minimal atelectasis or fluid along the right minor fissure. Minimal bandlike atelectasis in the right lung base. Otherwise unremarkable study. Lumbar Spine MRI 09/29/16 16:02 IMPRESSION: ESSENTIALLY STABLE DEGREE OF ADVANCED MULTILEVEL DEGENERATIVE CHANGE OF THE LUMBAR SPINE WITH MODERATE TO SEVERE SPINAL CANAL STENOSIS AND NEURAL FORAMINAL NARROWING DETAILED ABOVE. SCLEROTIC LESION WITHIN THE S2 LEVEL COMPATIBLE WITH OSSEOUS METASTATIC DISEASE. OVERALL IMPROVED APPEARANCE OF METASTATIC DISEASE INVOLVING THE PERITONEUM M AND PARASPINAL MUSCLES. THERE IS A SINGLE LESIONS SEEN MEDIAL TO THE RIGHT KIDNEY NOT CONFIDENTLY IDENTIFIED ON THE MOST RECENT CT AND PRIOR MRI CONCERNING FOR NEW IN IMPLANT. RECOMMEND ATTENTION ON FOLLOWUP ONCOLOGY STUDIES. Assessment & Plan - Diagnosis (1) Metastasis from bladder cancer Is this a current diagnosis for this admission?: YesPlan: cant swallow pills. Stop keppra, dexamethasone, haldol. Consider hospice at home. (2) Acute on chronic kidney failure Is this a current diagnosis for this admission?: YesPlan: Na up. Switch half NS (3) Gram-negative bacteremia Is this a current diagnosis for this admission?: Yes (4) Hyperkalemia Is this a current diagnosis for this admission?: Yes
[2016-10-04] MEDS: 1/2 NORMAL SALINE 1,000 ML IV PRN (10:32)
[2016-10-04] MEDS: CEFTRIAXONE 1 GM/D5W RTU 1 GM/50 ML RTUPB IV SCH (21:04)
[2016-10-05] MEDS: 1/2 NORMAL SALINE 1,000 ML IV PRN (01:23)
[2016-10-05 04:36] VITALS: BP 120/80
[2016-10-05] MEDS: MORPHINE SULFATE 10 MG/ML INJ IV PRN (05:09)
--- NOTE | 2016-10-05 08:31 | PDOC PROGRESS REPORT ---
Subjective Progress Note for:: 10/05/16 Subjective:: unresponsive Physical Exam Vital Signs: Temp Pulse Resp BP Pulse Ox 99.0 F 119 H 20 120/80 88 L 10/05/16 04:20 10/05/16 07:00 10/05/16 04:20 10/05/16 04:20 10/05/16 04:20 Intake & Output 10/04/16 10/05/16 10/06/16 07:59 07:59 07:59 Intake Total 3020 2343 Output Total 2800 1450 Balance 220 893 Weight 295 lb 10.238 oz 136 lb 3.931 oz Respiratory exam: PRESENT: rhonchi Cardiovascular exam: ABSENT: diastolic murmur, irregular rhythm, systolic murmur GI/Abdominal exam: ABSENT: mass, organolmegaly Extremities exam: ABSENT: pedal edema Results Laboratory Results: 10/04/16 04:53 Impressions: Chest X-Ray 09/29/16 15:33 IMPRESSION: Minimal atelectasis or fluid along the right minor fissure. Minimal bandlike atelectasis in the right lung base. Otherwise unremarkable study. Lumbar Spine MRI 09/29/16 16:02 IMPRESSION: ESSENTIALLY STABLE DEGREE OF ADVANCED MULTILEVEL DEGENERATIVE CHANGE OF THE LUMBAR SPINE WITH MODERATE TO SEVERE SPINAL CANAL STENOSIS AND NEURAL FORAMINAL NARROWING DETAILED ABOVE. SCLEROTIC LESION WITHIN THE S2 LEVEL COMPATIBLE WITH OSSEOUS METASTATIC DISEASE. OVERALL IMPROVED APPEARANCE OF METASTATIC DISEASE INVOLVING THE PERITONEUM M AND PARASPINAL MUSCLES. THERE IS A SINGLE LESIONS SEEN MEDIAL TO THE RIGHT KIDNEY NOT CONFIDENTLY IDENTIFIED ON THE MOST RECENT CT AND PRIOR MRI CONCERNING FOR NEW IN IMPLANT. RECOMMEND ATTENTION ON FOLLOWUP ONCOLOGY STUDIES. Assessment & Plan - Diagnosis (1) Metastasis from bladder cancer Is this a current diagnosis for this admission?: YesPlan: terminal. Comfort care (2) Acute on chronic kidney failure Is this a current diagnosis for this admission?: Yes (3) Gram-negative bacteremia Is this a current diagnosis for this admission?: Yes (4) Hyperkalemia Is this a current diagnosis for this admission?: Yes
--- NOTE | 2016-10-06 05:17 | Death Summary ---
Summary Date : 10/05/16 Time of :: 08:45 Autopsy: No Resuscitation Status: Do Not Resuscitate Primary Care Provider: [email or web address] - Final Diagnosis (1) Metastasis from bladder cancer Is this a current diagnosis for this admission?: Yes (2) Acute on chronic kidney failure Is this a current diagnosis for this admission?: Yes (3) Gram-negative bacteremia Is this a current diagnosis for this admission?: Yes (4) Hyperkalemia Is this a current diagnosis for this admission?: Yes Hospital Course:: Periods of apnea persisted off opioids but pain persisted. Fentanyl helped. He had ceftriaxone for klebsiella bacteremia. He became stuporous and at 8 :45.
== END 2016-10-05 13:29 | disposition expired | DRG 687 ==
LOC: ER 13:28 → UNDOADMIN 20:02 → EH 20:02 → 3W 09-30 01:15 → EH 09-30 01:25
PROVIDERS: ADMIT Family Medicine; ATTEND Family Medicine
DX: C67.9 Malignant neoplasm of bladder, unspecified (principal); C78.7 Secondary malignant neoplasm of liver and intrahepatic bile duct; C79.31 Secondary malignant neoplasm of brain; R78.81 Bacteremia; N17.9 Acute kidney failure, unspecified; E87.1 Hypo-osmolality and hyponatremia; Z66 Do not resuscitate; Z51.5 Encounter for palliative care; R33.9 Retention of urine, unspecified; I12.9 Hypertensive chronic kidney disease with stage 1 through stage 4 chronic kidney disease, or unspecified chronic kidney disease; E87.5 Hyperkalemia; N18.9 Chronic kidney disease, unspecified; B96.1 Klebsiella pneumoniae [K. pneumoniae] as the cause of diseases classified elsewhere; K21.9 Gastro-esophageal reflux disease without esophagitis; Z88.0 Allergy status to penicillin; Z90.6 Acquired absence of other parts of urinary tract; Z90.5 Acquired absence of kidney; Z87.891 Personal history of nicotine dependence
CPT/HCPCS: 36415; 51702; 71010; 72148; 80048; 80053; 81001; 82550; 82553; 83735; 84484; 85025; 87040; 87077; 87086; 87186; 93005; 93010; 94640; 94660; 96365; 96375; 96376; 96413; 99285; A9270-GY; C9483; J0610; J0696; J1630; J1815; J1940; J2270; J2310; J2405; J3490; J7030; J7050